=== PATIENT | female | born 1990 | race Caucasian/White ===

== ENCOUNTER 2017-04-30 00:35 | Inpatient (IN) | payer MEDICAID ==
[2017-04-30] MEDS ORDERED: Sodium Chloride 0.9% 10 ML Syringe FLUSH PRN (00:42)
[2017-04-30] MEDS ORDERED: Nalbuphine 20 MG/1 ML Amp IVPUSH PRN (00:42)
[2017-04-30] MEDS ORDERED: Nalbuphine 20 MG/1 ML Amp ONE (00:44)
[2017-04-30] MEDS ORDERED: Oxytocin/Lactated Ringers 10 UNIT/1,000 ML BAG IV ONE (00:52)
[2017-04-30] MEDS ORDERED: Lidocaine 1% 50 ML MDV ONE (00:53)
--- NOTE | 2017-04-30 01:27 | PCM.LDHP ---
L&D History of Present Illness - General Date of Service: 04/30/17 Admit Problem/Dx: Patient Status Order with Admit Dx/Problem 04/30/17 00:42 Patient Status [ADT] Routine Admission Diagnosis/Problem Admission Diagnosis/Problem Source of Information: Patient History Limitations: Reports: No Limitations - History of Present Illness Introduction:: 26-year-old 102 [place]HT[place] 05/16/17 at 37 weeks and 5 days presented to labor and delivery with history of ruptured membranes spontaneously at approximately 11:30 PM on 04/29/17 (2330) GBS negative was admitted to labor and delivery at 6 -7 cm dilated progressed rapidly to complete. On transvaginal delivery without laceration see delivery note. AB+, antibody screen negative rubella immune RPR nonreactive, hepatitis B surface antigen negative HIV negative Chlamydia negative GC negative hemoglobin 11.3 on 02/01/17 platelets 187,001 hour OB glucose screen 73 antibody screen negative RPR nonreactive GBS not detected Location, : Reports: Abdomen, Lower back Pain Score: 10 Improves with: Reports: None Worsens with: Reports: None Associated Symptoms: Reports: N - Related Data Allergies/Adverse Reactions: Allergies Allergy/AdvReac Type Severity Reaction Status Date / Time No Known Allergies Allergy Verified 04/30/17 00:42 Past Medical History : 3 Para: 1 (1102) LMP (Approximate): H&P Review of Systems - Review of Systems: Review Of Systems: See Below General: Reports: No Symptoms HEENT: Reports: No Symptoms Pulmonary: Reports: No Symptoms Cardiovascular: Reports: No Symptoms Gastrointestinal: Reports: No Symptoms Genitourinary: Reports: No Symptoms Musculoskeletal: Reports: No Symptoms Skin: Reports: No Symptoms Psychiatric: Reports: No Symptoms Neurological: Reports: No Symptoms Hematologic/Lymphatic: Reports: No Symptoms Immunologic: Reports: No Symptoms L&D Exam - Exam Exam: See Below - Vital Signs Weight: 203 lb - OB Specific Fundal Height In cm: 37 Contraction Duration (sec): 60 Contraction Frequency (min): 2 Contraction Intensity: Strong Movement: Active Heart Tones: Present Heart Tones per Min: 135 Heart Rate (FHR) Variability: Moderate (6-25 bmp) Presentation: Right Occiput Anterior (HELEN) - Carey Score Carey Score Cervix Position: Posterior Carey Score Consistency: Soft Carey Score Effacement: >80% Carey Score Dilation: > 5 cm Carey Score Infant's Station: +1, +2 Carey Score Total: 11 - Exam General: Alert, Oriented HEENT: Conjunctiva Clear, Mucosa Moist & [place], Posterior Pharynx Clear, PERRLA Neck: Supple, Trachea Midline Lungs: Clear to Auscultation, Normal Respiratory Effort Cardiovascular: Regular Rate, Regular Rhythm GI/Abdominal Exam: Normal Bowel Sounds, Soft, Non-Tender, No Organomegaly, No Distention, No Abnormal Bruit Genitourinary: Normal external exam, Normal bimanual exam, Normal speculum exam Back Exam: Normal Inspection, Full Range of Motion Extremities: Normal Inspection, Normal Range of Motion, Non-Tender, No Pedal Edema, Normal Capillary Refill Skin: Warm, Dry, Intact Psychiatric: Alert, Normal Affect, Normal Mood - Problem List (1) 37 weeks gestation of SNOMED Code(s): 28327119 ICD Code: Z3A.37 - 37 WEEKS GESTATION OF Status: Acute Current Visit: Yes (2) Encounter for full-term uncomplicated delivery SNOMED Code(s): 46820271 ICD Code: O80 - ENCOUNTER FOR FULL-TERM UNCOMPLICATED DELIVERY Status: Acute Current Visit: Yes (3) Precipitous delivery, delivered (current hospitalization) SNOMED Code(s): 876830764 ICD Code: O62.3 - PRECIPITATE LABOR Status: Acute Current Visit: Yes Problem List Initiated/Reviewed/Updated: No Orders Last 24hrs: Active Orders 24 hr Category Date Time Status Patient Status [ADT] Routine ADT 04/30/17 00:42 Active Activity as Tolerated [RC] PFP Care 04/30/17 00:42 Active Communication Order [RC] ASDIRECTED Care 04/30/17 00:42 Active Heart Tones [RC] ASDIRECTED Care 04/30/17 00:43 Active Notify Provider [RC] PFP Care 04/30/17 00:42 Active Notify Provider [RC] PRN Care 04/30/17 00:42 Active Peripheral IV Care [RC] . DIRECTED Care 04/30/17 00:43 Active Pump Management, Intrathecal [RC] ASDIRECTED Care 04/30/17 00:44 Active Vital Signs [RC] PER UNIT ROUTINE Care 04/30/17 00:42 Active Nalbuphine [Nubain] Med 04/30/17 00:42 Active 10 mg IVPUSH Q2H PRN Oxytocin [Pitocin] 20 unit Med 04/30/17 01:00 Active Lactated Ringers [Ringers, Lactated] 1,000 ml IV TITRATE Sodium Chloride 0.9% [Saline Flush] Med 04/30/17 00:42 Active 10 ml FLUSH ASDIRECTED PRN Electronic Heart Tones Ext w TOCO [WOMSER] Oth 04/30/17 00:42 Ordered Routine Electronic Heart Tones Internal [WOMSER] Per Unit Oth 04/30/17 00:42 Ordered Routine Peripheral IV Insertion Adult [OM.PC] Routine Oth 04/30/17 00:42 Ordered Resuscitation Status Routine Resus Stat 04/30/17 00:42 Ordered Medication Orders Oxytocin 20 unit/ Lactated (Ringer's) 1,002 mls @ 500 mls/hr IV TITRATE ALVAREZ Nalbuphine HCl (Nubain) 10 mg IVPUSH Q2H PRN PRN Reason: Pain (moderate 4-6) Sodium Chloride (Saline Flush) 10 ml FLUSH ASDIRECTED PRN PRN Reason: Keep Vein Open Assessment/Plan Comment:: Patient presented to labor and delivery precipitous delivery history and physical completed after delivery. I was called at 00 46 and arrived at 0053
--- NOTE | 2017-04-30 01:33 | PCM.DEL ---
L & D Note - General Info Date of Service: 04/30/17 Mother's Due Date: 05/16/17 - Delivery Note Labor: Spontaneous Delivery Outcome: Livebirth (Female liveborn Monday04/30/17 0100 hrs. HELEN Apgars 8/9 weight pending) Delivery Mode: Spontaneous Presentation: Right Occiput Anterior (HELEN) Nuchal Cord: None Prep: Povidone-Iodine (Betadine Anesthesia Type: None Episiotomy Type: None Laceration: None Placenta: Intact, Spontaneous ([place] 04/30/17Monday 0106 hrs. examined intact discarded) Cord: 3 Vessels Estimated Blood Loss: 150 Resuscitation Needed: No : Suctioned, Bulb Syringe, Stimulated, Warmed, [place] Used, Warmer Used Provider: Roney Kennedy Score 1 min: 8 Score 5 min: 9 - Patient Data Weight - Most Recent: 203 lb Med Orders - Current: Current Medications Oxytocin 20 unit/ Lactated (Ringer's) 1,002 mls @ 500 mls/hr IV TITRATE ALVAREZ Nalbuphine HCl (Nubain) 10 mg IVPUSH Q2H PRN PRN Reason: Pain (moderate 4-6) Sodium Chloride (Saline Flush) 10 ml FLUSH ASDIRECTED PRN PRN Reason: Keep Vein Open Discontinued Medications Oxytocin/Lactated Ringer's (Pitocin In Lr 10 Units/1,000 Ml) Confirm Administered Dose 10 unit in 1,000 mls @ as directed IV .STK-MED ONE Stop: 04/30/17 00:53 Lidocaine HCl (Xylocaine 1%) Confirm Administered Dose 50 ml .ROUTE .STK-MED ONE Stop: 04/30/17 00:54 Nalbuphine HCl (Nubain) Confirm Administered Dose 20 mg .ROUTE .STK-MED ONE Stop: 04/30/17 00:45 - Problem List & Annotations (1) 37 weeks gestation of SNOMED Code(s): 45050563 Code(s): Z3A.37 - 37 WEEKS GESTATION OF Status: Acute Current Visit: Yes (2) Encounter for full-term uncomplicated delivery SNOMED Code(s): 57320863 Code(s): O80 - ENCOUNTER FOR FULL-TERM UNCOMPLICATED DELIVERY Status: Acute Current Visit: Yes (3) Precipitous delivery, delivered (current hospitalization) SNOMED Code(s): 735595479 Code(s): O62.3 - PRECIPITATE LABOR Status: Acute Current Visit: Yes - Problem List Review Problem List Initiated/Reviewed/Updated: No - My Orders Last 24 Hours: My Active Orders 04/30/17 00:42 Patient Status [ADT] Routine Activity as Tolerated [RC] PFP Communication Order [RC] ASDIRECTED Notify Provider [RC] PFP Notify Provider [RC] PRN Vital Signs [RC] PER UNIT ROUTINE Nalbuphine [Nubain] 10 mg IVPUSH Q2H PRN Sodium Chloride 0.9% [Saline Flush] 10 ml FLUSH ASDIRECTED PRN Electronic Heart Tones Ext w TOCO [WOMSER] Routine Electronic Heart Tones Internal [WOMSER] Per Unit Routine Peripheral IV Insertion Adult [OM.PC] Routine Resuscitation Status Routine 04/30/17 00:43 Heart Tones [RC] ASDIRECTED Peripheral IV Care [RC] . DIRECTED 04/30/17 00:44 Pump Management, Intrathecal [RC] ASDIRECTED 04/30/17 01:00 Oxytocin [Pitocin] 20 unit Lactated Ringers [Ringers, Lactated] 1,000 ml IV TITRATE 04/30/17 01:28 Patient Status Manage Transfer [TRANSFER] Routine - Plan Plan:: Patient presented to labor and delivery precipitous delivery history and physical completed after delivery. I was called at 00 46 and arrived at 0053
[2017-04-30] MEDS ORDERED: Docusate Sodium 100 MG Cap PO PRN (01:39)
[2017-04-30] MEDS ORDERED: Benzocaine/Menthol 20%-0.5% Spray 56 GM Canister TOP PRN (01:39)
[2017-04-30] MEDS ORDERED: Acetaminophen 325 MG Tab PO PRN (01:39)
[2017-04-30] MEDS ORDERED: Witch Hazel Medicated Pads 100/Jar TOP PRN (01:39)
[2017-04-30] MEDS ORDERED: Lanolin 100% Cream 7 GM Tube TOP PRN (01:39)
[2017-04-30] MEDS: Ibuprofen 600 MG Tab PO PRN ×3 (03:30→20:55)
[2017-04-30] MEDS ORDERED: Ondansetron 4 MG Tab.DIS PO PRN (07:56)
--- NOTE | 2017-04-30 09:48 | PCM.PNPP ---
- General Info Date of Service: 04/30/17 Functional Status: Reports: Pain Controlled - Review of Systems General: Reports: Other (Planes of dizziness and shakiness) HEENT: Reports: No Symptoms Pulmonary: Reports: No Symptoms Cardiovascular: Reports: No Symptoms Gastrointestinal: Reports: No Symptoms Genitourinary: Reports: No Symptoms Musculoskeletal: Reports: No Symptoms Skin: Reports: No Symptoms Neurological: Reports: No Symptoms Psychiatric: Reports: No Symptoms - General Info Date of Service: 04/30/17 - Patient Data Weight - Most Recent: 203 lb Lab Results - Last 24 Hours: Laboratory Results - last 24 hr 04/30/17 04/30/17 Range/Units 06:51 08:29 WBC 18.78 H (3.98-10.04) K/mm3 RBC 3.39 L (3.98-5.22) M/mm3 Hgb 10.8 L (11.2-15.7) gm/L Hct 31.6 L (34.1-44.9) % MCV 93.2 (79.4-94.8) fl MCH 31.9 (25.6-32.2) pg MCHC 34.2 (32.2-35.5) g/dl RDW Std Deviation 44.9 (36.4-46.3) fL Plt Count 149 L (182-369) K/mm3 MPV 11.1 (9.4-12.3) fl Neut % (Auto) 85.0 H (34.0-71.1) % Lymph % (Auto) 9.7 L (19.3-51.7) % [place] % (Auto) 4.8 (4.7-12.5) % Eos % (Auto) 0 L (0.7-5.8) Baso % (Auto) 0.1 (0.1-1.2) % Neut # (Auto) 15.97 H (1.56-6.13) K/mm3 Lymph # (Auto) 1.82 (1.18-3.74) K/mm3 [place] # (Auto) 0.90 H (0.24-0.36) K/mm3 Eos # (Auto) 0.00 L (0.04-0.36) K/mm3 Baso # (Auto) 0.02 (0.01-0.08) K/mm3 Manual Slide Review Abnormal smear Sodium 137 (136-145) mEq/L Potassium 4.4 (3.5-5.1) mEq/L Chloride 104 (98-107) mEq/L Carbon Dioxide 23 (21-32) mEq/L Anion Gap 14.4 (5-15) BUN 19 H (7-18) mg/dL Creatinine 0.8 (0.55-1.02) mg/dL Est Cr Clr Drug Dosing 100.63 mL/min Estimated GFR (MDRD) > 60 (>60) mL/min BUN/Creatinine Ratio 23.8 H (14-18) Glucose 102 (74-106) mg/dL Uric Acid 8.4 H (2.6-6.0) mg/dL Calcium 8.5 (8.5-10.1) mg/dL Total Bilirubin 0.4 (0.2-1.0) mg/dL AST 23 (15-37) U/L ALT 16 (14-59) U/L Alkaline Phosphatase 105 (46-116) U/L Total Protein 5.7 L (6.4-8.2) g/dl Albumin 2.4 L (3.4-5.0) g/dl Globulin 3.3 gm/dL Albumin/Globulin Ratio 0.7 L (1-2) Med Orders - Current: Current Medications Acetaminophen (Tylenol) 650 mg PO Q4H PRN PRN Reason: mild pain or fever Last Admin: 04/30/17 06:51 Dose: 325 mg Benzocaine/Menthol (Dermoplast Pain Relief [place]) 0 gm TOP ASDIRECTED PRN PRN Reason: Perineal Comfort Measure Last Admin: 04/30/17 06:47 Dose: 1 applic Docusate Sodium (Colace) 100 mg PO BID PRN PRN Reason: Constipation Emollient Ointment (Lansinoh Hpa) 0 gm TOP ASDIRECTED PRN PRN Reason: Sore Nipples Ibuprofen (Motrin) 600 mg PO Q4H PRN PRN Reason: Mild pain or fever Last Admin: 04/30/17 03:30 Dose: 600 mg Ondansetron HCl (Zofran Odt) 4 mg PO Q4H PRN PRN Reason: Nausea/Vomiting Last Admin: 04/30/17 08:46 Dose: 4 mg Witch Alisha (Tucks) 1 pad TOP ASDIRECTED PRN PRN Reason: Hemorrhoid pain Last Admin: 04/30/17 06:48 Dose: 1 applic Discontinued Medications Oxytocin 20 unit/ Lactated (Ringer's) 1,002 mls @ 500 mls/hr IV TITRATE ALVAREZ Oxytocin/Lactated Ringer's (Pitocin In Lr 10 Units/1,000 Ml) Confirm Administered Dose 10 unit in 1,000 mls @ as directed IV .STK-MED ONE Stop: 04/30/17 00:53 Last Admin: 04/30/17 06:56 Dose: 10 unit Lidocaine HCl (Xylocaine 1%) Confirm Administered Dose 50 ml .ROUTE .STK-MED ONE Stop: 04/30/17 00:54 Last Admin: 04/30/17 06:52 Dose: Not Given Nalbuphine HCl (Nubain) Confirm Administered Dose 20 mg .ROUTE .STK-MED ONE Stop: 04/30/17 00:45 Last Admin: 04/30/17 06:50 Dose: Not Given Nalbuphine HCl (Nubain) 10 mg IVPUSH Q2H PRN PRN Reason: Pain (moderate 4-6) Last Admin: 04/30/17 00:40 Dose: 10 mg Sodium Chloride (Saline Flush) 10 ml FLUSH ASDIRECTED PRN PRN Reason: Keep Vein Open - Infant Interaction Disposition, : [place] in Room with Family Infant Interaction: Holding Infant Support Person: Significant Other - Recovery Exam Fundal Tone: Firm Fundal Level: At Umbilicus Fundal Placement: Midline Lochia Amount: Scant Lochia Color: Rubra/Red Perineum Description: Intact, Minimal Bruising/Swelling Episiotomy/Laceration: None Bladder Status: Nonpalpable - Exam General: Alert, Oriented Neck: Supple Lungs: Clear to Auscultation, Normal Respiratory Effort Cardiovascular: Regular Rate, Regular Rhythm GI/Abdominal Exam: Normal Bowel Sounds, Soft, Non-Tender, No Distention, No Abnormal Bruit Extremities: Normal Inspection, Normal Range of Motion, Non-Tender, No Pedal Edema, Normal Capillary Refill Skin: Warm, Dry, Intact Wound/Incisions: Healing Well Neurological: No New Focal Deficit, Other (Reflexes 3+ no clonus (patellar)) Psy/Mental Status: Alert, Normal Affect, Normal Mood - Problem List & Annotations (1) 37 weeks gestation of SNOMED Code(s): 75457784 Code(s): Z3A.37 - 37 WEEKS GESTATION OF Status: Acute Current Visit: Yes (2) Encounter for full-term uncomplicated delivery SNOMED Code(s): 23584979 Code(s): O80 - ENCOUNTER FOR FULL-TERM UNCOMPLICATED DELIVERY Status: Acute Current Visit: Yes (3) Precipitous delivery, delivered (current hospitalization) SNOMED Code(s): 508230519 Code(s): O62.3 - PRECIPITATE LABOR Status: Acute Current Visit: Yes - Problem List Review Problem List Initiated/Reviewed/Updated: No - My Orders Last 24 Hours: My Active Orders 04/30/17 00:42 Activity as Tolerated [RC] PFP Communication Order [RC] ASDIRECTED Notify Provider [RC] PFP Notify Provider [RC] PRN Vital Signs [RC] PER UNIT ROUTINE Resuscitation Status Routine 04/30/17 00:43 Heart Tones [RC] ASDIRECTED Peripheral IV Care [RC] . DIRECTED 04/30/17 00:44 Pump Management, Intrathecal [RC] ASDIRECTED 04/30/17 01:39 Activity as Tolerated [RC] PER UNIT ROUTINE Vital Signs [RC] ASDIRECTED Acetaminophen [Tylenol] 650 mg PO Q4H PRN Benzocaine/Menthol [Dermoplast Pain Relief [place]] See Dose Instructions TOP ASDIRECTED PRN Docusate Sodium [Colace] 100 mg PO BID PRN Ibuprofen [Motrin] 600 mg PO Q4H PRN Lanolin [Lansinoh HPA] See Dose Instructions TOP ASDIRECTED PRN Witch Alisha [Tucks] 1 pad TOP ASDIRECTED PRN Assess Lochia [WOMSER] Per Unit Routine Assess Uterine Involution [WOMSER] Per Unit Routine Breast Pump [WOMSER] Per Unit Routine Heat Therapy [OM.PC] PRN Medication Administration Instruction [OM.PC] Routine Perineal Care [OM.PC] Per Unit Routine Peripheral IV Discontinue [OM.PC] Routine Sitz Bath [OM.PC] Per Unit Routine 04/30/17 07:56 Ondansetron [Zofran ODT] 4 mg PO Q4H PRN 04/30/17 Breakfast Regular Diet [DIET] 05/01/17 01:39 Heat Therapy [OM.PC] PRN - Assessment Assessment:: Due to hyperreflexia will place on Vistaril 25 mg by mouth every 6 hours - Plan Plan:: Patient presented to labor and delivery precipitous delivery history and physical completed after delivery. I was called at 00 46 and arrived at 0053
[2017-04-30] MEDS: hydrOXYzine HCl 25 MG Tab PO SCH ×2 (14:38→19:21)
[2017-05-01] MEDS: hydrOXYzine HCl 25 MG Tab PO SCH ×2 (02:42→04:33)
[2017-05-01] MEDS: Ibuprofen 600 MG Tab PO PRN (04:10)
--- NOTE | 2017-05-01 06:18 | PCM.DCSUM1 ---
Discharge Summary - Hospital Course Free Text/Narrative:: [facility] LIVE L/D Delivery Note Patient Name: URBAN WALKER Date of : 89 Patient Status: Inpatient Attending Provider: Roney Kennedy Date: 04/30/17 01:32 Initialization Date: 04/30/17 01:32 L & D Note - General Info Date of Service: 04/30/17 Mother's Due Date: 05/16/17 - Delivery Note Labor: Spontaneous Delivery Outcome: Livebirth (Female liveborn Monday04/30/17 0100 hrs. HELEN Apgars 8/9 weight pending) Delivery Mode: Spontaneous Presentation: Right Occiput Anterior (HELEN) Nuchal Cord: None Prep: Povidone-Iodine (Betadine Anesthesia Type: None Episiotomy Type: None Laceration: None Placenta: Intact, Spontaneous (04/30/17Monday 0106 hrs. examined intact discarded) Cord: 3 Vessels Estimated Blood Loss: 150 Resuscitation Needed: No : Suctioned, Bulb Syringe, Stimulated, Warmed, [place] Used, Warmer Used Provider: Roney Kennedy Score 1 min: 8 Score 5 min: 9 - Patient Data Weight - Most Recent: 203 lb Med Orders - Current: Current Medications Oxytocin 20 unit/ Lactated (Ringer's) 1,002 mls @ 500 mls/hr IV TITRATE ALVAREZ Nalbuphine HCl (Nubain) 10 mg IVPUSH Q2H PRN PRN Reason: Pain (moderate 4-6) Sodium Chloride (Saline Flush) 10 ml FLUSH ASDIRECTED PRN PRN Reason: Keep Vein Open Discontinued Medications Oxytocin/Lactated Ringer's (Pitocin In Lr 10 Units/1,000 Ml) Confirm Administered Dose 10 unit in 1,000 mls @ as directed IV .STK-MED ONE Stop: 04/30/17 00:53 Lidocaine HCl (Xylocaine 1%) Confirm Administered Dose 50 ml .ROUTE .STK-MED ONE Stop: 04/30/17 00:54 Nalbuphine HCl (Nubain) Confirm Administered Dose 20 mg .ROUTE .STK-MED ONE Stop: 04/30/17 00:45 - Problem List & Annotations (1) 37 weeks gestation of SNOMED Code(s): 20622461 Code(s): Z3A.37 - 37 WEEKS GESTATION OF Status: Acute Current Visit: Yes (2) Encounter for full-term uncomplicated delivery SNOMED Code(s): 54178319 Code(s): O80 - ENCOUNTER FOR FULL-TERM UNCOMPLICATED DELIVERY Status: Acute Current Visit: Yes (3) Precipitous delivery, delivered (current hospitalization) SNOMED Code(s): 135311317 Code(s): O62.3 - PRECIPITATE LABOR Status: Acute Current Visit: Yes - Problem List Review Problem List Initiated/Reviewed/Updated: No - My Orders Last 24 Hours: My Active Orders 04/30/17 00:42 Patient Status [ADT] Routine Activity as Tolerated [RC] PFP Communication Order [RC] ASDIRECTED Notify Provider [RC] PFP Notify Provider [RC] PRN Vital Signs [RC] PER UNIT ROUTINE Nalbuphine [Nubain] 10 mg IVPUSH Q2H PRN Sodium Chloride 0.9% [Saline Flush] 10 ml FLUSH ASDIRECTED PRN Electronic Heart Tones Ext w TOCO [WOMSER] Routine Electronic Heart Tones Internal [WOMSER] Per Unit Routine Peripheral IV Insertion Adult [OM.PC] Routine Resuscitation Status Routine 04/30/17 00:43 Heart Tones [RC] ASDIRECTED Peripheral IV Care [RC] . DIRECTED 04/30/17 00:44 Pump Management, Intrathecal [RC] ASDIRECTED 04/30/17 01:00 Oxytocin [Pitocin] 20 unit Lactated Ringers [Ringers, Lactated] 1,000 ml IV TITRATE 04/30/17 01:28 Patient Status Manage Transfer [TRANSFER] Routine - Plan Plan:: Patient presented to labor and delivery precipitous delivery history and physical completed after delivery. I was called at 00 46 and arrived at 0053 HPI Initial Comments: [facility] LIVE L/D Delivery Note Patient Name: URBAN WALKER Date of : 89 Patient Status: Inpatient Attending Provider: Roney Kennedy Date: 04/30/17 01:32 Initialization Date: 04/30/17 01:32 L & D Note - General Info Date of Service: 04/30/17 Mother's Due Date: 05/16/17 - Delivery Note Labor: Spontaneous Delivery Outcome: Livebirth (Female liveborn Monday04/30/17 0100 hrs. HELEN Apgars 8/9 weight pending) Delivery Mode: Spontaneous Presentation: Right Occiput Anterior (HELEN) Nuchal Cord: None Prep: Povidone-Iodine (Betadine Anesthesia Type: None Episiotomy Type: None Laceration: None Placenta: Intact, Spontaneous ([place] 04/30/17Monday 0106 hrs. examined intact discarded) Cord: 3 Vessels Estimated Blood Loss: 150 Resuscitation Needed: No [place]: Suctioned, Bulb Syringe, Stimulated, Warmed, [place] Used, Warmer Used Provider: Roney Kennedy Score 1 min: 8 Score 5 min: 9 - Patient Data Weight - Most Recent: 203 lb Med Orders - Current: Current Medications Oxytocin 20 unit/ Lactated (Ringer's) 1,002 mls @ 500 mls/hr IV TITRATE ALVAREZ Nalbuphine HCl (Nubain) 10 mg IVPUSH Q2H PRN PRN Reason: Pain (moderate 4-6) Sodium Chloride (Saline Flush) 10 ml FLUSH ASDIRECTED PRN PRN Reason: Keep Vein Open Discontinued Medications Oxytocin/Lactated Ringer's (Pitocin In Lr 10 Units/1,000 Ml) Confirm Administered Dose 10 unit in 1,000 mls @ as directed IV .STK-MED ONE Stop: 04/30/17 00:53 Lidocaine HCl (Xylocaine 1%) Confirm Administered Dose 50 ml .ROUTE .STK-MED ONE Stop: 04/30/17 00:54 Nalbuphine HCl (Nubain) Confirm Administered Dose 20 mg .ROUTE .STK-MED ONE Stop: 04/30/17 00:45 - Problem List & Annotations (1) 37 weeks gestation of SNOMED Code(s): 26831218 Code(s): Z3A.37 - 37 WEEKS GESTATION OF Status: Acute Current Visit: Yes (2) Encounter for full-term uncomplicated delivery SNOMED Code(s): 27191705 Code(s): O80 - ENCOUNTER FOR FULL-TERM UNCOMPLICATED DELIVERY Status: Acute Current Visit: Yes (3) Precipitous delivery, delivered (current hospitalization) SNOMED Code(s): 712720164 Code(s): O62.3 - PRECIPITATE LABOR Status: Acute Current Visit: Yes - Problem List Review Problem List Initiated/Reviewed/Updated: No - My Orders Last 24 Hours: My Active Orders 04/30/17 00:42 Patient Status [ADT] Routine Activity as Tolerated [RC] PFP Communication Order [RC] ASDIRECTED Notify Provider [RC] PFP Notify Provider [RC] PRN Vital Signs [RC] PER UNIT ROUTINE Nalbuphine [Nubain] 10 mg IVPUSH Q2H PRN Sodium Chloride 0.9% [Saline Flush] 10 ml FLUSH ASDIRECTED PRN Electronic Heart Tones Ext w TOCO [WOMSER] Routine Electronic Heart Tones Internal [WOMSER] Per Unit Routine Peripheral IV Insertion Adult [OM.PC] Routine Resuscitation Status Routine 04/30/17 00:43 Heart Tones [RC] ASDIRECTED Peripheral IV Care [RC] . DIRECTED 04/30/17 00:44 Pump Management, Intrathecal [RC] ASDIRECTED 04/30/17 01:00 Oxytocin [Pitocin] 20 unit Lactated Ringers [Ringers, Lactated] 1,000 ml IV TITRATE 04/30/17 01:28 Patient Status Manage Transfer [TRANSFER] Routine - Plan Plan:: Patient presented to labor and delivery precipitous delivery history and physical completed after delivery. I was called at 00 46 and arrived at 0053 Brief History: [facility] LIVE . L/D Delivery Note. Patient Name: URBAN WALKER [facility] Record Number: [id number]. Date of : [birth year]Patient Status: Inpatient. Attending Provider: Roney Kennedy Number: [id number]. Date: 04/30/17 01:32Initialization Date: 04/30/17 01:32. L & D Note. - General Info. Date of Service: 04/30/17. Mother's Due Date: 05/16/17. - Delivery Note. Labor: Spontaneous. Delivery Outcome: Livebirth ( Female liveborn Monday04/30/17 0100 hrs. HELEN Apgars 8/9 weight pending). Infant Delivery Mode: Spontaneous. Presentation: Right Occiput Anterior ( HELEN). Nuchal Cord: None. Prep: Povidone-Iodine (Betadine. Anesthesia Type: None. Episiotomy Type: None. Laceration: None. Placenta: Intact, Spontaneous ([place] 04/30/17Monday 0106 hrs. examined intact discarded). Cord: 3 Vessels. Estimated Blood Loss: 150. Resuscitation Needed: No. : Suctioned, Bulb Syringe, Stimulated, Warmed, [place] Used, Warmer Used. Provider : Roney Kennedy. Score 1 min: 8. Score 5 min: 9. - Patient Data. Weight - Most Recent: 203 lb. Med Orders - Current: Current Medications. Oxytocin 20 unit/ Lactated (Ringer's) 1,002 mls @ 500 mls/hr IV TITRATE ALVAREZ. Nalbuphine HCl (Nubain) 10 mg IVPUSH Q2H PRN. PRN Reason: Pain ( moderate 4-6). Sodium Chloride (Saline Flush) 10 ml FLUSH ASDIRECTED PRN. PRN Reason: Keep Vein Open. Discontinued Medications. Oxytocin/Lactated Ringer 's (Pitocin In Lr 10 Units/1,000 Ml) Confirm Administered Dose 10 unit in 1,000 mls @ as directed IV .STK-MED ONE. Stop: 04/30/17 00:53. Lidocaine HCl ( Xylocaine 1%) Confirm Administered Dose 50 ml .ROUTE .STK-MED ONE. Stop: 00:54. Nalbuphine HCl (Nubain) Confirm Administered Dose 20 mg .ROUTE .STK- MED ONE. Stop: 04/30/17 00:45. - Problem List & Annotations. (1) 37 weeks gestation of . SNOMED Code(s): 96670732. Code(s): Z3A.37 - 37 WEEKS GESTATION OF Status: Acute Current Visit: Yes. (2) Encounter for full-term uncomplicated delivery. SNOMED Code(s): 95086813. Code(s): O80 - ENCOUNTER FOR FULL-TERM UNCOMPLICATED DELIVERY Status: Acute Current Visit: Yes. (3) Precipitous delivery, delivered (current hospitalization). SNOMED Code(s): 447740963. Code(s): O62.3 - PRECIPITATE LABOR Status: Acute Current Visit: Yes. - Problem List Review. Problem List Initiated/Reviewed/ Updated: No. - My Orders. Last 24 Hours: My Active Orders. 04/30/17 00:42. Patient Status [ADT] Routine. Activity as Tolerated [RC] PFP. Communication Order [RC] ASDIRECTED. Notify Provider [RC] PFP. Notify Provider [RC] PRN. Vital Signs [RC] PER UNIT ROUTINE. Nalbuphine [Nubain] 10 mg IVPUSH Q2H PRN. Sodium Chloride 0.9% [Saline Flush] 10 ml FLUSH ASDIRECTED PRN. Electronic Heart Tones Ext w TOCO [WOMSER] Routine. Electronic Heart Tones Internal [WOMSER] Per Unit Routine. Peripheral IV Insertion Adult [OM.PC] Routine. Resuscitation Status Routine. 04/30/17 00:43. Heart Tones [RC ] ASDIRECTED. Peripheral IV Care [RC] . DIRECTED. 04/30/17 00:44. Pump Management, Intrathecal [RC] ASDIRECTED. 04/30/17 01:00. Oxytocin [Pitocin] 20 unit Lactated Ringers [Ringers, Lactated] 1,000 ml IV TITRATE. 04/30/17 01 :28. Patient Status Manage Transfer [TRANSFER] Routine. - Plan. Plan:: Patient presented to labor and delivery precipitous delivery history and physical completed after delivery. I was called at 00 46 and arrived at 0053 - Discharge Data Discharge Date: 05/01/17 Discharge Disposition: Home, Self-Care 01 Condition: Good - Discharge Diagnosis/Problem(s) (1) 37 weeks gestation of SNOMED Code(s): 37192352 ICD Code: Z3A.37 - 37 WEEKS GESTATION OF Status: Acute Current Visit: Yes (2) Encounter for full-term uncomplicated delivery SNOMED Code(s): 47463059 ICD Code: O80 - ENCOUNTER FOR FULL-TERM UNCOMPLICATED DELIVERY Status: Acute Current Visit: Yes (3) Precipitous delivery, delivered (current hospitalization) SNOMED Code(s): 905545735 ICD Code: O62.3 - PRECIPITATE LABOR Status: Acute Current Visit: Yes - Patient Summary/Data Complications: None Consults: None Hospital Course: Uneventful - Patient Instructions Diet: Regular Diet as Tolerated Driving: Do Not Drive (48 hours) Showering/Bathing: May Shower Notify Provider of: Fever, Increased Pain, Swelling and Redness, Drainage, Nausea and/or Vomiting - Discharge Plan Home Medications: Home Meds Acetaminophen [Tylenol] 650 mg PO Q6H PRN tablet 05/01/17 [Rx] Benzocaine/Menthol [Dermoplast Pain Relief Fulda] 1 spray TOP ASDIRECTED PRN canister 05/01/17 [Rx] Docusate Sodium [Colace] 100 mg PO BID PRN cap 05/01/17 [Rx] Ibuprofen [IJD: Ibuprofen] 600 mg PO Q6H PRN tablet 05/01/17 [Rx] Lanolin [Lansinoh HPA] 1 applic TOP ASDIRECTED PRN tube 05/01/17 [Rx] Witch Alisha [Tucks] 1 pad TOP ASDIRECTED PRN pad 05/01/17 [Rx] Referrals: Stefanie Norton MD [Physician] - (6 weeks) - Discharge Summary/Plan Comment DC Time >30 min.: No - Patient Data Vitals - Most Recent: Last Vital Signs Temp 97.9 F 05/01/17 03:57 Pulse 96 05/01/17 03:57 Resp 16 05/01/17 03:57 BP 139/81 05/01/17 03:57 Pulse Ox 100 05/01/17 03:57 Weight - Most Recent: 203 lb I&O - Last 24 hours: Intake & Output 04/30/17 04/30/17 05/01/17 14:59 22:59 06:59 Intake Total 120 360 Balance 120 360 Lab Results - Last 24 hrs: Laboratory Results - last 24 hr 04/30/17 04/30/17 Range/Units 06:51 08:29 WBC 18.78 H (3.98-10.04) K/mm3 RBC 3.39 L (3.98-5.22) M/mm3 Hgb 10.8 L (11.2-15.7) gm/L Hct 31.6 L (34.1-44.9) % MCV 93.2 (79.4-94.8) fl MCH 31.9 (25.6-32.2) pg MCHC 34.2 (32.2-35.5) g/dl RDW Std Deviation 44.9 (36.4-46.3) fL Plt Count 149 L (182-369) K/mm3 MPV 11.1 (9.4-12.3) fl Neut % (Auto) 85.0 H (34.0-71.1) % Lymph % (Auto) 9.7 L (19.3-51.7) % [place] % (Auto) 4.8 (4.7-12.5) % Eos % (Auto) 0 L (0.7-5.8) Baso % (Auto) 0.1 (0.1-1.2) % Neut # (Auto) 15.97 H (1.56-6.13) K/mm3 Lymph # (Auto) 1.82 (1.18-3.74) K/mm3 [place] # (Auto) 0.90 H (0.24-0.36) K/mm3 Eos # (Auto) 0.00 L (0.04-0.36) K/mm3 Baso # (Auto) 0.02 (0.01-0.08) K/mm3 Manual Slide Review Abnormal smear Sodium 137 (136-145) mEq/L Potassium 4.4 (3.5-5.1) mEq/L Chloride 104 (98-107) mEq/L Carbon Dioxide 23 (21-32) mEq/L Anion Gap 14.4 (5-15) BUN 19 H (7-18) mg/dL Creatinine 0.8 (0.55-1.02) mg/dL Est Cr Clr Drug Dosing 100.63 mL/min Estimated GFR (MDRD) > 60 (>60) mL/min BUN/Creatinine Ratio 23.8 H (14-18) Glucose 102 (74-106) mg/dL Uric Acid 8.4 H (2.6-6.0) mg/dL Calcium 8.5 (8.5-10.1) mg/dL Total Bilirubin 0.4 (0.2-1.0) mg/dL AST 23 (15-37) U/L ALT 16 (14-59) U/L Alkaline Phosphatase 105 (46-116) U/L Total Protein 5.7 L (6.4-8.2) g/dl Albumin 2.4 L (3.4-5.0) g/dl Globulin 3.3 gm/dL Albumin/Globulin Ratio 0.7 L (1-2) Med Orders - Current: Current Medications Acetaminophen (Tylenol) 650 mg PO Q4H PRN PRN Reason: mild pain or fever Last Admin: 04/30/17 06:51 Dose: 325 mg Benzocaine/Menthol (Dermoplast Pain Relief [place]) 0 gm TOP ASDIRECTED PRN PRN Reason: Perineal Comfort Measure Last Admin: 04/30/17 06:47 Dose: 1 applic Docusate Sodium (Colace) 100 mg PO BID PRN PRN Reason: Constipation Emollient Ointment (Lansinoh Hpa) 0 gm TOP ASDIRECTED PRN PRN Reason: Sore Nipples Hydroxyzine HCl (Atarax) 25 mg PO Q6H [facility] Stop: 05/01/17 10:01 Last Admin: 05/01/17 04:33 Dose: Not Given Ibuprofen (Motrin) 600 mg PO Q4H PRN PRN Reason: Mild pain or fever Last Admin: 05/01/17 04:10 Dose: 600 mg Ondansetron HCl (Zofran Odt) 4 mg PO Q4H PRN PRN Reason: Nausea/Vomiting Last Admin: 04/30/17 08:46 Dose: 4 mg Witch Alisha (Tucks) 1 pad TOP ASDIRECTED PRN PRN Reason: Hemorrhoid pain Last Admin: 04/30/17 06:48 Dose: 1 applic Discontinued Medications Oxytocin 20 unit/ Lactated (Ringer's) 1,002 mls @ 500 mls/hr IV TITRATE [facility] Oxytocin/Lactated Ringer's (Pitocin In Lr 10 Units/1,000 Ml) Confirm Administered Dose 10 unit in 1,000 mls @ as directed IV .STK-MED ONE Stop: 04/30/17 00:53 Last Admin: 04/30/17 06:56 Dose: 10 unit Lidocaine HCl (Xylocaine 1%) Confirm Administered Dose 50 ml .ROUTE .STK-MED ONE Stop: 04/30/17 00:54 Last Admin: 04/30/17 06:52 Dose: Not Given Nalbuphine HCl (Nubain) Confirm Administered Dose 20 mg .ROUTE .STK-MED ONE Stop: 04/30/17 00:45 Last Admin: 04/30/17 06:50 Dose: Not Given Nalbuphine HCl (Nubain) 10 mg IVPUSH Q2H PRN PRN Reason: Pain (moderate 4-6) Last Admin: 04/30/17 00:40 Dose: 10 mg Sodium Chloride (Saline Flush) 10 ml FLUSH ASDIRECTED PRN PRN Reason: Keep Vein Open *Q Meaningful Use (DIS) - VTE *Q VTE Criteria *Q: - Stroke *Q Stroke Criteria *Q: - AMI *Q AMI Criteria *Q:
[2017-05-01 09:32] VITALS: BP 137/84
== END 2017-05-01 08:30 | disposition home or self-care (01) | DRG 775 ==
LOC: JD.OBCHECK 00:35 → JD.OB 00:37 → JD.OBCHECK 00:54 → JD.OB 00:55 → OBSVTOIN 01:00 → JD.OB 01:00
PROVIDERS: ADMIT Obstetrics & Gynecology; ATTEND Obstetrics & Gynecology
PROC: 10E0XZZ Delivery of Products of Conception, External Approach (ICD-10-PCS; principal; 2017-04-30)
DX: O42.02 Full-term premature rupture of membranes, onset of labor within 24 hours of rupture (principal); Z37.0 Single live birth; Z3A.38 38 weeks gestation of pregnancy; O62.3 Precipitate labor; R29.2 Abnormal reflex
CPT/HCPCS: 36415; 59409; 80053; 84550; 85025; A9270-GY; J2300; J2590

== ENCOUNTER → 2017-05-12 | Day surgery (SDC) | payer MEDICAID ==
[~2017-05-12] MED LIST: Dexamethasone 4 MG/ML 5 ML MDV ONE; HYDROmorphone 0.5 MG/0.5 ML Syringe IVPUSH PRN; Ketorolac 30 MG/ML SDV IVPUSH ONE; Lactated Ringers 1,000 ML IV SCH; Lactated Ringers 1,000 ML ONE; Lidocaine 1% 4 ML ONE; Lidocaine 1%/Sod Bicarbonate in NS 8.4% 1 ML Syringe IV PRN; Meperidine PF 50 MG/ML Syringe IVPUSH PRN; Methylergonovine 0.2 MG/1 ML Amp ONE; Midazolam 1 MG/ML 2 ML SDV ONE; Ondansetron 4 MG/2 ML SDV IVPUSH PRN; Ondansetron 4 MG/2 ML SDV ONE; Oxytocin 10 Units/1 ML SDV ONE; Propofol 200 MG/20 ML SDV ONE; Scopolamine 1.5 MG Transdermal Patch TRDERM ONE; Sodium Chloride 0.9% 10 ML Syringe FLUSH PRN; Succinylcholine 200 MG/10 ML MDV ONE; diphenhydrAMINE 50 MG/ML SDV IVPUSH PRN; fentaNYL 100 MCG/2 ML SDV IVPUSH PRN; fentaNYL 250 MCG/5 ML SDV ONE
--- NOTE | 2017-05-12 07:02 | PCM.PREANE ---
Preanesthetic Assessment - Anesthesia/Transfusion/Family Hx Anesthesia History: Prior Anesthesia Without Reaction Family History of Anesthesia Reaction: No Transfusion History: No Prior Transfusion(s) - Review of Systems General: No Symptoms Pulmonary: No Symptoms Cardiovascular: No Symptoms Gastrointestinal: No Symptoms Neurological: No Symptoms, Headache, Numbness, Tingling (Numbness and tingling to hands bilateral) Other: Reports: None - Physical Assessment NPO Status Date: 05/11/17 NPO Status Time: 23:59 Pulse: 69 O2 Sat by Pulse Oximetry: 100 Respiratory Rate: 14 Blood Pressure: 127/56 Temperature: 37.3 C Weight: 99 kg ASA Class: 2 Mental Status: Alert & Oriented x3 Airway Class: Mallampati = 2 Dentition: Reports: Normal Dentition Thyro-Mental Finger Breadths: 3 Mouth Opening Finger Breadths: 3 ROM/Head Extension: Full Lungs: Clear to Auscultation, Normal Respiratory Effort Cardiovascular: Regular Rate, Regular Rhythm - Lab Values: Laboratory Last Values Urine HCG, Qual Positive (NEGATIVE) 05/12/17 06:29 - Allergies Allergies/Adverse Reactions: Allergies Allergy/AdvReac Type Severity Reaction Status Date / Time No Known Allergies Allergy Verified 05/11/17 14:29 - Acknowledgements Anesthesia Type Planned: General Anesthesia Pt an Appropriate Candidate for the Planned Anesthesia: Yes Alternatives and Risks of Anesthesia Discussed w Pt/Guardian: Yes Pt/Guardian Understands and Agrees with Anesthesia Plan: Yes PreAnesthesia Questionnaire Cardiovascular History: Reports: None Respiratory History: Reports: Asthma Gastrointestinal History: Reports: None Genitourinary History: Reports: None 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: Musculoskeletal History: Reports: None Neurological History: Reports: None Psychiatric History: Reports: Depression Endocrine/Metabolic History: Reports: None Hematologic History: Reports: None Immunologic History: Reports: None Oncologic (Cancer) History: Reports: None Dermatologic History: Reports: None - Past Surgical History Head Surgeries/Procedures: Reports: None HEENT Surgical History: Reports: Adenoidectomy, Tonsillectomy Cardiovascular Surgical History: Reports: None Respiratory Surgical History: Reports: None GI Surgical History: Reports: Appendectomy Female Surgical History: Reports: Salpingo-Oophorectomy Male Surgical History: Reports: None Endocrine Surgical History: Reports: None Neurological Surgical History: Reports: None Musculoskeletal Surgical History: Reports: None Oncologic Surgical History: Reports: None Dermatological Surgical History: Reports: None - SUBSTANCE USE Smoking Status *Q: Never Smoker Second Hand Smoke Exposure: No Recreational Drug Use History: No - HOME MEDS Home Medications: Home Meds Ibuprofen 400 mg PO Q6H PRN 05/11/17 [History] Vits #93/Iron Fum/FA [ Formula Tablet] 1 tab PO DAILY 05/11/17 [History] - CURRENT (IN HOUSE) MEDS Current Meds: Current Medications Lactated Ringer's (Ringers, Lactated) 1,000 mls @ 125 mls/hr IV ASDIRECTED ALVAREZ Stop: 05/12/17 23:00 Lidocaine/Sodium Bicarbonate (Buffered Lidocaine 1% In Ns 8.4%) 0.25 ml IV ONETIME PRN PRN Reason: Prior to IV Start Stop: 05/12/17 18:00 Sodium Chloride (Saline Flush) 10 ml FLUSH ASDIRECTED PRN PRN Reason: Keep Vein Open Stop: 05/12/17 18:00 Discontinued Medications Fentanyl (Sublimaze) Confirm Administered Dose 250 mcg .ROUTE .STK-MED ONE Stop: 05/12/17 07:06 Midazolam HCl (Versed 1 Mg/Ml) Confirm Administered Dose 2 mg .ROUTE .STK-MED ONE Stop: 05/12/17 07:06 Propofol (Diprivan 20 Ml) Confirm Administered Dose 200 mg .ROUTE .STK-MED ONE Stop: 05/12/17 07:06
--- NOTE | 2017-05-12 08:20 | PCM.POSTAN ---
POST ANESTHESIA ASSESSMENT - MENTAL STATUS Mental Status: Alert, Oriented - VITAL SIGNS Pulse Rate: 93 SaO2: 100 Resp Rate: 17 Blood Pressure: 110/63 Temperature: 36.9 C - RESPIRATORY Respiratory Status: Respiratory Rate WNL, Airway Patent, O2 Saturation Stable, Supplemental Oxygen - CARDIOVASCULAR CV Status: Pulse Rate WNL, Blood Pressure Stable - GASTROINTESTINAL GI Status: No Symptoms - PAIN Pain Score: 0 - POST OP HYDRATION Hydration Status: Adequate & Stable
--- NOTE | 2017-05-12 09:27 | PCM.OPNOTE ---
- General Post-Op/Procedure Note Date of Surgery/Procedure: 05/12/17 Operative Procedure(s): suction dilation and curettage Findings: placental fragments Pre Op Diagnosis: retained placental tissue Post-Op Diagnosis: Same Anesthesia Technique: General ET Tube Primary Surgeon: Stefanie Norton Pathology: placenta Fluid Replacement, Intraop: 1,000 EBL in mLs: 30 Complications: None Condition: Good Free Text/Narrative:: Intake & Output 05/11/17 05/12/17 05/12/17 22:59 06:59 14:59 Intake Total 500 Balance 500 Patient was taken to operating room where general anesthesia was initiated found to be adequate prepped and draped in normal sterile fashion in dorsal lithotomy position in Arnol stirrups. Self retaining speculum placed anterior lip of the cervix grasped with ring forceps and multiple passes with ring forceps used to obtain 3 approximately golf ball-sized pieces fragments of placenta. Suction curettage performed with a 12 and then an 8 curette. Bimanual exam also confirmed no further placental tissue. Instruments removed. Patient awakened and taken to PACU in good condition.
[2017-05-12] MEDS: Ketorolac 30 MG/ML SDV ONE (09:30)
[2017-05-12 10:32] VITALS: BP 108/62
--- NOTE | 2017-05-12 15:37 | PCM48HPAN ---
Post Anesthesia Note - EVALUATION WITHIN 48HRS OF ANESTHETIC Vital Signs in Normal Range: Yes Patient Participated in Evaluation: Yes Respiratory Function Stable: Yes Airway Patent: Yes Cardiovascular Function Stable: Yes Hydration Status Stable: Yes Pain Control Satisfactory: Yes Nausea and Vomiting Control Satisfactory: Yes Mental Status Recovered: Yes
== END | disposition home or self-care (01) ==
LOC: JD.SDS 06:23
PROVIDERS: ATTEND Obstetrics & Gynecology
DX: O73.0 Retained placenta without hemorrhage (principal); J45.909 Unspecified asthma, uncomplicated; Z90.49 Acquired absence of other specified parts of digestive tract; F32.9 Major depressive disorder, single episode, unspecified; Z90.710 Acquired absence of both cervix and uterus; Z98.890 Other specified postprocedural states; Z79.899 Other long term (current) drug therapy
CPT/HCPCS: 36415; 58120; 81025; 85025; 86850; 86900; 86901; A9270; J0330; J1100; J1885; J2210; J2250; J2405; J2590; J3010; J7120; 00940; J2704

== ENCOUNTER 2019-04-13 15:36 | Emergency (ER) | payer BC ==
[2019-04-13] MEDS ORDERED: Sodium Chloride 0.9% 10 ML Syringe FLUSH PRN (15:56)
[2019-04-13] MEDS ORDERED: Ondansetron 4 MG/2 ML SDV IVPUSH ONE (15:56)
[2019-04-13] MEDS ORDERED: Sodium Chloride 0.9% 1,000 ML IV STA (15:56)
[2019-04-13] MEDS ORDERED: HYDROmorphone 1 MG/ML Syringe IVPUSH ONE (16:01)
--- NOTE | 2019-04-13 17:40 | US ---
Limited obstetrical ultrasound: Multiple real-time images were obtained. Comparison: No previous obstetrical imaging. Dates: Current ultrasound: [facility] 09/26/19, gestational age 16 weeks 2 days presentation: Breech Placenta: Anterior with no findings of abruption or previa Amniotic fluid: Within normal limits Measurements: Heart rate: 150 BPM [place]-rump length: 10.35 cm - 16 weeks 2 days Cervical length: 4.2 cm Impression: 1. Single intrauterine fetus. Dates as noted above. 2. No complicating process is seen by ultrasound at this time. Diagnostic code #1
--- NOTE | 2019-04-13 17:41 | US ---
Limited abdominal ultrasound: Multiple real-time images were obtained of the upper right abdomen. Small hyperechoic finding is noted within the right lobe of the liver measuring 2.2 cm. This is most likely due to hemangioma although follow-up will be recommended. No additional abnormality is seen within the liver. Gallbladder shows no gallstones. No gallbladder wall thickening or biliary duct dilatation is seen. Right kidney shows no hydronephrosis or mass. Visualized pancreas shows no discrete abnormality. Portal vein shows normal hepatopedal flow. Impression: 1. 2.2 cm echogenic abnormality within the right lobe of the liver. This finding is most likely due to hemangioma. Recommend repeat ultrasound after the patient's was finished to confirm stability 2. No additional abnormality is appreciated on right upper quadrant abdominal ultrasound. Diagnostic code #3
--- NOTE | 2019-04-13 17:49 | EDM.PDOC ---
ED HPI GENERAL MEDICAL PROBLEM - General Chief Complaint: Abdominal Pain Stated Complaint: abdominal pain Time Seen by Provider: 04/13/19 15:51 Source of Information: Reports: Patient History Limitations: Reports: No Limitations - History of Present Illness INITIAL COMMENTS - FREE TEXT/NARRATIVE: The patient presents by ambulance for RUQ and epigastric pain. This started about an hour before arrival. She ate a chicken strip from [employer] and then had nausea and vomiting and the pain. She has no fever or chills. She has no chest pain or shortness of breath. She told EMS that she is and 26 weeks gestation and later told them 20 weeks. She went back to OB and she then told them that she was really 16 weeks gestation. She came back to us and was given some zofran by them. She still had the pain. She is . She has never had pain like this before. She still has her gallbladder and appendix. She has no dysuria or hematuria. Onset: Sudden Duration: Hour(s): (1) Location: Reports: Abdomen Quality: Reports: Sharp Severity: Severe Improves with: Reports: None Worsens with: Reports: None Associated Symptoms: Reports: Nausea/Vomiting. 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: Musculoskeletal History: Reports: None Neurological History: Reports: None Psychiatric History: Reports: Depression Endocrine/Metabolic History: Reports: Obesity/BMI 30+ Hematologic History: Reports: None Immunologic History: Reports: None Oncologic (Cancer) History: Reports: None Dermatologic History: Reports: None - Past Surgical History Head Surgeries/Procedures: Reports: None HEENT Surgical History: Reports: Adenoidectomy, Tonsillectomy Cardiovascular Surgical History: Reports: None Respiratory Surgical History: Reports: None GI Surgical History: Reports: Appendectomy Female Surgical History: Reports: D&C, Oophorectomy Neurological Surgical History: Reports: None Oncologic Surgical History: Reports: None Dermatological Surgical History: Reports: None Social & Family History - Family History Family Medical History: Noncontributory - Tobacco Use Smoking Status *Q: Never Smoker - Caffeine Use Caffeine Use: Reports: Coffee - Living Situation & Occupation Living situation: Reports: , with Spouse, with Family (3 kids) Occupation: Unemployed ED ROS GENERAL - Review of Systems Review Of Systems: See Below Constitutional: Reports: No Symptoms HEENT: Reports: No Symptoms Respiratory: Reports: No Symptoms Cardiovascular: Reports: No Symptoms Endocrine: Reports: No Symptoms GI/Abdominal: Reports: Abdominal Pain, Nausea, Vomiting. Denies: Diarrhea : Reports: No Symptoms Musculoskeletal: Reports: No Symptoms Skin: Reports: No Symptoms ED EXAM, GI/ABD - Physical Exam Exam: See Below Exam Limited By: No Limitations General Appearance: Alert, No Apparent Distress, Moderate Distress Ears: Normal External Exam Nose: Normal Inspection Head: Atraumatic, Normocephalic Neck: Other (Enlarged right lobe of the thyroid) Respiratory/Chest: No Respiratory Distress, Lungs Clear, Normal Breath Sounds Cardiovascular: Regular Rate, Rhythm, No Edema, No Murmur GI/Abdominal Exam: Soft, Tender (Moderate tenderness to the RUQ and epigastric area. Uterus felt up to just below the umbilicus.) Course - Vital Signs Last Recorded V/S: Last Vital Signs Temp 98.6 F 04/13/19 15:50 Pulse 90 04/13/19 15:50 Resp BP Pulse Ox 100 04/13/19 15:50 - Orders/Labs/Meds Orders: Active Orders 24 hr Category Date Time Status Peripheral IV Care [RC] . DIRECTED Care 04/13/19 16:00 Active HYDROmorphone [Dilaudid] Med 04/13/19 18:51 Once 0.5 mg IVPUSH ONETIME ONE Pantoprazole [ProTONIX IV] Med 04/13/19 18:51 Once 40 mg IVPUSH ONETIME ONE Sodium Chloride 0.9% [Saline Flush] Med 04/13/19 15:56 Active 10 ml FLUSH ASDIRECTED PRN Peripheral IV Insertion Adult [OM.PC] Stat Oth 04/13/19 15:56 Ordered Medication Orders Sodium Chloride (Saline Flush) 10 ml FLUSH ASDIRECTED PRN PRN Reason: Keep Vein Open Last Admin: 04/13/19 17:25 Dose: 10 ml Labs: Laboratory Tests 04/13/19 04/13/19 04/13/19 Range/Units 16:30 16:30 17:32 WBC 8.98 (3.98-10.04) K/mm3 RBC 3.88 L (3.98-5.22) M/mm3 Hgb 11.2 (11.2-15.7) gm/dl Hct 33.2 L (34.1-44.9) % MCV 85.6 D (79.4-94.8) fl MCH 28.9 (25.6-32.2) pg MCHC 33.7 (32.2-35.5) g/dl RDW Std Deviation 41.1 (36.4-46.3) fL Plt Count 200 (182-369) K/mm3 MPV 9.9 (9.4-12.3) fl Neut % (Auto) 80.4 H (34.0-71.1) % Lymph % (Auto) 14.3 L (19.3-51.7) % [place] % (Auto) 4.7 (4.7-12.5) % Eos % (Auto) 0.3 L (0.7-5.8) Baso % (Auto) 0.1 (0.1-1.2) % Neut # (Auto) 7.22 H (1.56-6.13) K/mm3 Lymph # (Auto) 1.28 (1.18-3.74) K/mm3 [place]aden # (Auto) 0.42 H (0.24-0.36) K/mm3 Eos # (Auto) 0.03 L (0.04-0.36) K/mm3 Baso # (Auto) 0.01 (0.01-0.08) K/mm3 Sodium 137 (136-145) mEq/L Potassium 3.5 (3.5-5.1) mEq/L Chloride 105 (98-107) mEq/L Carbon Dioxide 24 (21-32) mEq/L Anion Gap 11.5 (5-15) BUN 8 (7-18) mg/dL Creatinine 0.5 L (0.55-1.02) mg/dL Est Cr Clr Drug Dosing 158.22 mL/min Estimated GFR (MDRD) > 60 (>60) mL/min BUN/Creatinine Ratio 16.0 (14-18) Glucose 100 (74-106) mg/dL Calcium 8.5 (8.5-10.1) mg/dL Total Bilirubin 0.4 (0.2-1.0) mg/dL AST 62 H (15-37) U/L ALT 54 (14-59) U/L Alkaline Phosphatase 45 L (46-116) U/L Total Protein 6.3 L (6.4-8.2) g/dl Albumin 3.0 L (3.4-5.0) g/dl Globulin 3.3 gm/dL Albumin/Globulin Ratio 0.9 L (1-2) Lipase 99 (73-393) U/L Free T4 0.78 (0.76-1.46) ng/dL TSH 3rd Generation 1.794 (0.358-3.74) uIU/mL Urine Color Yellow (Yellow) Urine Appearance Clear (Clear) Urine pH 7.0 (5.0-8.0) Ur Specific [place] 1.020 (1.005-1.030) Urine Protein Negative (Negative) Urine Glucose (UA) Negative (Negative) Urine Ketones 2+ H (Negative) Urine Occult Blood Negative (Negative) Urine Nitrite Negative (Negative) Urine Bilirubin Negative (Negative) Urine Urobilinogen 1.0 (0.2-1.0) Ur Leukocyte Esterase Trace H (Negative) Urine RBC 0-5 (0-5) /hpf Urine WBC 5-10 H (0-5) /hpf Ur Squamous Epith Cells 75-100 H (0-5) /hpf Urine Bacteria Few (FEW) /hpf Urine Mucus Not seen (FEW) /hpf Meds: Medications Generic Name Dose Route Start Last Admin Trade Name Freq PRN Reason Stop Dose Admin Sodium Chloride 10 ml 04/13/19 15:56 04/13/19 17:25 Saline Flush FLUSH 10 ml ASDIRECTED PRN Administration Keep Vein Open Discontinued Medications Generic Name Dose Route Start Last Admin Trade Name Freq PRN Reason Stop Dose Admin Hydromorphone HCl 1 mg 04/13/19 16:01 04/13/19 16:16 Dilaudid IVPUSH 04/13/19 16:02 1 mg ONETIME ONE Administration Sodium Chloride 1,000 mls @ 1,000 mls/hr 04/13/19 15:56 04/13/19 16:15 Normal Saline IV 04/13/19 16:55 1,000 mls/hr .BOLUS STA Administration Ondansetron HCl 4 mg 04/13/19 15:56 04/13/19 17:23 Zofran IVPUSH 04/13/19 15:57 Not Given ONETIME ONE - Re-Assessments/Exams Free Text/Narrative Re-Assessment/Exam: 04/13/19 18:34 I ordered an IV NS 1L bolus, dilaudid 1mg IV, labs, UA and an US of her RUQ and pelvis. Her CBC looks good. Her AST is slightly elevated at 62. Her Free T4 is normal. Her TSH is normal. Her UA shows no UTI. Her US shows a 2.2cm echogenic abnormality within the right love of the liver. This finding is most likely due to hemangioma. Recommend repeat US after the patient's was finished to confirm stability. No additional abnormality is appreciated on right upper quadrant abdominal US. The OB US shows single intrauterine fetus. With a heart rate of 150bpm at 16 weeks and 2 days. No complicating process is seen by US at this time. 04/13/19 18:51 She has more pain so I ordered dilaudid 0.5mg IV and protonix 40mg IV. I will get her on protonix and have her avoid fried fatty foods and follow up with Dr Tripp. Departure - Departure Time of Disposition: 18:55 Disposition: Home, Self-Care 01 Condition: Good Clinical Impression: Enlarged thyroid gland Abdominal pain Qualifiers: Abdominal location: upper abdomen, unspecified Qualified Code(s): R10.10 - Upper abdominal pain, unspecified - Discharge Information *PRESCRIPTION DRUG MONITORING PROGRAM REVIEWED*: No *COPY OF PRESCRIPTION DRUG MONITORING REPORT IN PATIENT JIN: No Prescriptions: Hydrocodone/Acetaminophen [Hydrocodon-Acetaminophen 5-325] 1 - 2 each PO Q6HR PRN #6 tablet PRN Reason: Pain Omeprazole Magnesium [Prilosec Otc] 20 mg PO DAILY #20 tablet. Referrals: Chuck Tripp MD [Primary Care Provider] - 1 Week Forms: ED Department Discharge Additional Instructions: Take the prilosec daily. Avoid fried, fatty food. Follow up with Dr Tripp this week. I have ordered an US of your thyroid for Monday at 7:30. There was a hemangioma found in your liver the radiologist recommends following up after delivery to have another US. Please return if you are worse. - My Orders Last 24 Hours: My Active Orders 04/13/19 15:56 Sodium Chloride 0.9% [Saline Flush] 10 ml FLUSH ASDIRECTED PRN Peripheral IV Insertion Adult [OM.PC] Stat 04/13/19 16:00 Peripheral IV Care [RC] . DIRECTED 04/13/19 18:51 HYDROmorphone [Dilaudid] 0.5 mg IVPUSH ONETIME ONE Pantoprazole [ProTONIX IV] 40 mg IVPUSH ONETIME ONE - Assessment/Plan Last 24 Hours: My Active Orders 04/13/19 15:56 Sodium Chloride 0.9% [Saline Flush] 10 ml FLUSH ASDIRECTED PRN Peripheral IV Insertion Adult [OM.PC] Stat 04/13/19 16:00 Peripheral IV Care [RC] . DIRECTED 04/13/19 18:51 HYDROmorphone [Dilaudid] 0.5 mg IVPUSH ONETIME ONE Pantoprazole [ProTONIX IV] 40 mg IVPUSH ONETIME ONE
[2019-04-13] MEDS ORDERED: Pantoprazole 40 MG Vial IVPUSH ONE (18:51)
[2019-04-13] MEDS ORDERED: HYDROmorphone 0.5 MG/0.5 ML Syringe IVPUSH ONE (18:51)
[2019-04-13 19:50] VITALS: BP 104/56; PULSE 86
== END 2019-04-13 19:44 | disposition home or self-care (01) ==
LOC: JD.ED 15:36 → JD.MS 15:36 → JD.OBCHECK 15:36 → JD.OB 15:37 → JD.MS 15:44 → EDSTATUS 15:47 → JD.OB 16:10 → JD.ED 19:44
DX: O99.282 Endocrine, nutritional and metabolic diseases complicating pregnancy, second trimester (principal); E04.9 Nontoxic goiter, unspecified; O26.892 Other specified pregnancy related conditions, second trimester; R10.10 Upper abdominal pain, unspecified; O99.512 Diseases of the respiratory system complicating pregnancy, second trimester; J45.909 Unspecified asthma, uncomplicated; Z3A.16 16 weeks gestation of pregnancy
CPT/HCPCS: 36415; 76705; 76815; 80053; 81001; 83690; 84439; 84443; 85025; 96361; 96374; 96375; 96376; 99284; C9113; J1170; J7040

== ENCOUNTER 2019-09-16 15:20 | Inpatient (IN) | payer BC ==
[~2019-09-16 15:20] MED LIST changes: +Bupivacaine 0.25% 10 ML SDV ONE; -Dexamethasone 4 MG/ML 5 ML MDV ONE; -HYDROmorphone 0.5 MG/0.5 ML Syringe IVPUSH PRN; -Ketorolac 30 MG/ML SDV IVPUSH ONE; -Lactated Ringers 1,000 ML IV SCH; -Lactated Ringers 1,000 ML ONE; -Lidocaine 1% 4 ML ONE; -Lidocaine 1%/Sod Bicarbonate in NS 8.4% 1 ML Syringe IV PRN; -Meperidine PF 50 MG/ML Syringe IVPUSH PRN; -Methylergonovine 0.2 MG/1 ML Amp ONE; -Midazolam 1 MG/ML 2 ML SDV ONE; -Ondansetron 4 MG/2 ML SDV IVPUSH PRN; -Ondansetron 4 MG/2 ML SDV ONE; -Oxytocin 10 Units/1 ML SDV ONE; -Propofol 200 MG/20 ML SDV ONE; -Scopolamine 1.5 MG Transdermal Patch TRDERM ONE; -Sodium Chloride 0.9% 10 ML Syringe FLUSH PRN; -Succinylcholine 200 MG/10 ML MDV ONE; -diphenhydrAMINE 50 MG/ML SDV IVPUSH PRN; -fentaNYL 100 MCG/2 ML SDV IVPUSH PRN; -fentaNYL 250 MCG/5 ML SDV ONE
[2019-09-16] MEDS: Lactated Ringers 1,000 ML IV SCH ×2 (15:20→15:53)
[2019-09-16] MEDS ORDERED: Sodium Chloride 0.9% 10 ML Syringe FLUSH PRN (15:23)
[2019-09-16] MEDS ORDERED: Ondansetron 4 MG/2 ML SDV IVPUSH PRN ×2 (15:23→15:42)
[2019-09-16] MEDS ORDERED: Oxytocin/Lactated Ringers 10 UNIT/1,000 ML BAG IV SCH (15:30)
[2019-09-16] MEDS ORDERED: ePHEDrine 50 MG/ML SDV IVPUSH PRN (15:42)
[2019-09-16] MEDS ORDERED: fentaNYL 100 MCG/2 ML SDV EPIDUR PRN (15:42)
[2019-09-16] MEDS ORDERED: Bupivacaine/fentaNYL/NS 100 ML Bag EPIDUR SCH (15:45)
--- NOTE | 2019-09-16 15:45 | PCM.PREANE ---
Preanesthetic Assessment - Anesthesia/Transfusion/Family Hx Anesthesia History: Prior Anesthesia Without Reaction Family History of Anesthesia Reaction: No Transfusion History: No Prior Transfusion(s) Intubation History: Unknown - Review of Systems General: No Symptoms Pulmonary: No Symptoms (asthma) Cardiovascular: No Symptoms Gastrointestinal: No Symptoms Neurological: No Symptoms, Numbness (tingling bilateral hands) Other: Reports: None - Physical Assessment NPO Status Date: 09/16/19 NPO Status Time: 12:00 Vital Signs: Last Vital Signs Temp 37.7 C 09/16/19 15:23 Pulse 108 H 09/16/19 15:23 Resp 14 09/16/19 15:23 BP 124/81 09/16/19 15:23 Pulse Ox 98 09/16/19 15:23 Height: 1.73 m Weight: 123.377 kg ASA Class: 2 Mental Status: Alert & Oriented x3 Airway Class: Mallampati = 2 Dentition: Reports: Normal Dentition, Caries Thyro-Mental Finger Breadths: 3 Mouth Opening Finger Breadths: 3 ROM/Head Extension: Full Lungs: Clear to Auscultation, Normal Respiratory Effort Cardiovascular: Regular Rate, Regular Rhythm - Lab Values: All labs reviewed and noted and within acceptable ranges to proceed with epidural if desired. - Allergies Allergies/Adverse Reactions: Allergies Allergy/AdvReac Type Severity Reaction Status Date / Time No Known Allergies Allergy Verified 09/16/19 15:37 - Anesthesia Plan Pre-Op Medication Ordered: None - Acknowledgements Anesthesia Type Planned: Epidural Pt an Appropriate Candidate for the Planned Anesthesia: Yes Alternatives and Risks of Anesthesia Discussed w Pt/Guardian: Yes Pt/Guardian Understands and Agrees with Anesthesia Plan: Yes PreAnesthesia Questionnaire HEENT History: Reports: Impaired Vision Cardiovascular History: Reports: None Respiratory History: Reports: Asthma Gastrointestinal History: Reports: None Genitourinary History: Reports: None 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 History: Reports: None Neurological History: Reports: None Psychiatric History: Reports: Depression Endocrine/Metabolic History: Reports: Obesity/BMI 30+ Hematologic History: Reports: None Immunologic History: Reports: None Oncologic (Cancer) History: Reports: None Dermatologic History: Reports: None - Past Surgical History Head Surgeries/Procedures: Reports: None HEENT Surgical History: Reports: Adenoidectomy, Tonsillectomy Cardiovascular Surgical History: Reports: None Respiratory Surgical History: Reports: None GI Surgical History: Reports: Appendectomy Female Surgical History: Reports: D&C, Oophorectomy Neurological Surgical History: Reports: None Oncologic Surgical History: Reports: None Dermatological Surgical History: Reports: None - HOME MEDS Home Medications: Home Meds Acetaminophen [Tylenol] 650 mg PO Q6HR PRN 09/08/19 [History] - CURRENT (IN HOUSE) MEDS Current Meds: Current Medications Ephedrine Sulfate (Ephedrine Sulfate) 5 mg IVPUSH ASDIRECTED PRN PRN Reason: Hypotension Fentanyl (Sublimaze) 100 mcg EPIDUR Q3H PRN PRN Reason: Pain Fentanyl/Bupivacaine HCl (Fentanyl/Bupivacaine/Ns 2 Mcg-0.125% 100 Ml) 100 ml EPIDUR ASDIRECTED ALVAREZ Lactated Ringer's (Ringers, Lactated) 1,000 mls @ 100 mls/hr IV ASDIRECTED ALVAREZ Oxytocin/Lactated Ringer's (Pitocin In Lr 10 Units/1,000 Ml) 10 unit in 1,000 mls @ 500 mls/hr IV .CONTINUOUS ALVAREZ Ondansetron HCl (Zofran) 4 mg IVPUSH Q4H PRN PRN Reason: Nausea/Vomiting Ondansetron HCl (Zofran) 4 mg IVPUSH ONETIME PRN PRN Reason: Nausea/Vomiting Sodium Chloride (Saline Flush) 10 ml FLUSH ASDIRECTED PRN PRN Reason: Keep Vein Open
--- NOTE | 2019-09-16 18:09 | PCM.LDHP ---
L&D History of Present Illness - General Date of Service: 09/16/19 Admit Problem/Dx: Patient Status Order with Admit Dx/Problem 09/16/19 15:23 Patient Status [ADT] Routine Admission Diagnosis/Problem Admission Diagnosis/Problem 09/16/19 18:00 Alyson is a 29-year-old 4 para 2/07/19 white female at 38-4/7 weeks gestational age with an ASHTYN of 09/26/2019 who is admitted in active labor with very rapidly progressing cervical dilation. Source of Information: Patient History Limitations: Reports: No Limitations - History of Present Illness Introduction:: Alyson is a 29-year-old 4 para 2/07/19 white female at 38-4/7 weeks gestational age with an ASHTYN of 09/26/2019 who is admitted in active labor with very rapidly progressing cervical dilation.Contractions started earlier today. Patient's progress. Upon arrival she is partially 4 cm dilated but quickly dilated up to 8 cm. She is found to have spontaneous rupture membranes with resultant clear amniotic fluid. History: 4 para 2/07/19 with an ASHTYN of 09/26/20195 start laststarting 2018 and supported by 3 ultrasounds done later in the . Patient had normal menarche.'s LMP 12/20/2018. Cycles every month. Patient's had 3 normal spontaneous vaginal deliveries 1 female 2 males. Largest baby 7 lbs. 6 oz. No problems after with pregnancies. Did have a D&C after last because of the continued post bleeding. Patient is group B strep negative. She had children as she is hypothyroid on replacement. She is breast-feeding. He is suffered from depression and anxiety and has had some relationship concerns and stresses related to her situation. Patient had first visit on 03/28/2019 , was seen on a regular basis. Weight gain was from 227 pounds to 233 pounds. Vital signs are stable throughout the course and her fundal height growth was appropriate. Patient received her flu vaccination and her diphtheria and pertussis tetanus vaccination on May 02, 2019 and September 04, 2019. She is rubella immune. Laboratory testing in : Blood is AB+ with negative [place] screen. Hemoglobin first pelvis was 12.0 g/dL. Platelets are 221,000. She is rubella immune. RPR is nonreactive. Urine culture was negative. Hepatitis B surface antigen and HIV assays were both negative. Chlamydia and gonorrhea assays are both negative. TSH done on 05/09/2019 was normal at 1.493 million units per liter. Second trimester testing showed hemoglobin of 11.0 g/dL platelets are 199 ,000. Her 1 hour GTT was normal at 88. Additional labs done on 06/21/2019 showed TSH 1.339normal. Free T4 and TSH done on 08/22/2019 was 0.71 and 1.3 respectively. Her group B strep screen was negative. Allergies: None Medications: 1. vitamins 1 daily Past medical history: 1. Normal spontaneous vaginal delivery 3 and prepped 2. Hypothyroidism on replacement 3. Childhood asthma now resolved Past surgical history: Para 1. Appendectomy and prepped 2. Left oophorectomy 3 D&C 2017 for bleeding Family history: Brothers alive and well as his father and 1 brother. 2 sisters are alive and well. Maternal grandmother is alive and well. Maternal grandfather secondary to heart disease. Paternal grandmother is regular heart disease at age 50. Paternal grandfather is secondary to motor vehicle accident. No family history of cancer, bleeding or clotting disorders, anesthesia principal 8 pounds. Social history: Patient is . Lives in [place]. Is [id number] mom. is Hair-T. He does not use any significant most alcohol, drugs or tobacco. Review of systems: In general patient has no complaints. Skin: Negative Lungs: No infectious symptoms or shortness of breath Cardiovascular: No chest pain or exercise intolerance Breasts: No lumps, changes in size, pain, dimpling, discharge or axillary or supraclavicular concerns. GI: Negative : Contractions as reported above, spontaneous rupture membranes as reported above Musculoskeletal: Negative Neurological: Negative In general the patient is well-developed, well-nourished, pleasant female of stated age in no acute distress. Skin is warm dry without lesions. HEENT, neck and back within normal limits. Lungs are clear with good breath sounds in all lung acosta. Cardiovascular exam shows regular and rhythm without murmurs. Breasts exam not performed as was done first visit found to be normal. Abdomen is is gravid with fundal height of 40 cm on last evaluation 09/09/2019. Genital and bimanual on admission was 4 cm dilated. Spontaneous rupture membranes was confirmed. Extremities and neurological exam are grossly within normal limits. Pain Score: 10 - Related Data Allergies/Adverse Reactions: Allergies Allergy/AdvReac Type Severity Reaction Status Date / Time No Known Allergies Allergy Verified 09/16/19 15:37 Home Medications: Home Meds Acetaminophen [Tylenol] 650 mg PO Q6HR PRN 09/08/19 [History] Past Medical History HEENT History: Reports: Impaired Vision Cardiovascular History: Reports: None Respiratory History: Reports: Asthma Gastrointestinal History: Reports: None Genitourinary History: Reports: None ROUTE RIDER History: Reports: Musculoskeletal History: Reports: None Neurological History: Reports: None Psychiatric History: Reports: Depression Endocrine/Metabolic History: Reports: Obesity/BMI 30+ Other Endocrine/Metabolic History: enlarged thyroid Hematologic History: Reports: None Immunologic History: Reports: None Oncologic (Cancer) History: Reports: None Dermatologic History: Reports: None - Infectious Disease History Infectious Disease History: Reports: Chicken Pox - Past Surgical History Head Surgeries/Procedures: Reports: None HEENT Surgical History: Reports: Adenoidectomy, Tonsillectomy Cardiovascular Surgical History: Reports: None Respiratory Surgical History: Reports: None GI Surgical History: Reports: Appendectomy Female Surgical History: Reports: D&C, Oophorectomy Neurological Surgical History: Reports: None Oncologic Surgical History: Reports: None Dermatological Surgical History: Reports: None Social & Family History - Family History Family Medical History: Noncontributory - Tobacco Use Smoking Status *Q: Never Smoker - Caffeine Use Caffeine Use: Reports: Coffee - Recreational Drug Use Recreational Drug Use: No - Living Situation & Occupation Living situation: Reports: , with Spouse, with Family (3 kids) Occupation: Unemployed H&P Review of Systems - Review of Systems: Review Of Systems: See Below L&D Exam - Exam Exam: See Below - Vital Signs Vital Signs: Last Vital Signs Temp 37.7 C 09/16/19 15:23 Pulse 108 H 09/16/19 15:23 Resp 14 09/16/19 15:23 BP 124/81 09/16/19 15:23 Pulse Ox 98 09/16/19 15:23 Weight: 123.377 kg - Patient Data Lab Results Last 24 hrs: Laboratory Results - last 24 hr 09/16/19 Range/Units 15:32 WBC 9.65 (3.98-10.04) K/mm3 RBC 3.79 L (3.98-5.22) M/mm3 Hgb 11.4 (11.2-15.7) gm/dl Hct 35.3 (34.1-44.9) % MCV 93.1 D (79.4-94.8) fl MCH 30.1 (25.6-32.2) pg MCHC 32.3 (32.2-35.5) g/dl RDW Std Deviation 45.1 (36.4-46.3) fL Plt Count 217 (182-369) K/mm3 MPV 9.7 (9.4-12.3) fl Neut % (Auto) 73.1 H (34.0-71.1) % Lymph % (Auto) 18.5 L (19.3-51.7) % [place] % (Auto) 7.0 (4.7-12.5) % Eos % (Auto) 0.4 L (0.7-5.8) Baso % (Auto) 0.2 (0.1-1.2) % Neut # (Auto) 7.04 H (1.56-6.13) K/mm3 Lymph # (Auto) 1.79 (1.18-3.74) K/mm3 [place] # (Auto) 0.68 H (0.24-0.36) K/mm3 Eos # (Auto) 0.04 (0.04-0.36) K/mm3 Baso # (Auto) 0.02 (0.01-0.08) K/mm3 Result Diagrams: 09/16/19 15:32 Problem List Initiated/Reviewed/Updated: Yes Orders Last 24hrs: Active Orders 24 hr Category Date Time Status Patient Status [ADT] Routine ADT 09/16/19 15:23 Active Activity as Tolerated [RC] PFP Care 09/16/19 15:23 Active Communication Order [RC] ASDIRECTED Care 09/16/19 15:23 Active Heart Tones [RC] ASDIRECTED Care 09/16/19 15:24 Active Non Stress Test [RC] PER UNIT ROUTINE Care 09/16/19 15:23 Active Notify Provider [RC] ASDIRECTED Care 09/16/19 15:42 Active Notify Provider [RC] PFP Care 09/16/19 15:23 Active Notify Provider [RC] PRN Care 09/16/19 15:23 Active Oxygen Therapy [RC] ASDIRECTED Care 09/16/19 15:42 Active Peripheral IV Care [RC] . DIRECTED Care 09/16/19 15:24 Active Pulse Oximetry [RC] ASDIRECTED Care 09/16/19 15:42 Active Pump Management, Intrathecal [RC] ASDIRECTED Care 09/16/19 15:25 Active Urinary Catheter Assessment [RC] ASDIRECTED Care 09/16/19 15:23 Active Vital Signs [RC] PER UNIT ROUTINE Care 09/16/19 15:23 Active Regular Diet [DIET] Diet 09/16/19 Dinner Active RAPID PLASMA REAGIN,RPR [CHEM] Routine Lab 09/16/19 15:32 Received Bupivacaine/fentaNYL/NS [fentaNYL/Bupivacaine/NS 2 MCG- Med 09/16/19 15:45 Active 0.125% 100 ML] 100 ml EPIDUR ASDIRECTED Lactated Ringers [Ringers, Lactated] 1,000 ml Med 09/16/19 15:30 Active IV ASDIRECTED Ondansetron [Zofran] Med 09/16/19 15:42 Active 4 mg IVPUSH ONETIME PRN Ondansetron [Zofran] Med 09/16/19 15:23 Active 4 mg IVPUSH Q4H PRN Oxytocin/Lactated Ringers [Pitocin in LR 10 Units/1,000 Med 09/16/19 15:30 Active ML] 10 unit in 1,000 ml IV .CONTINUOUS Sodium Chloride 0.9% [Saline Flush] Med 09/16/19 15:23 Active 10 ml FLUSH ASDIRECTED PRN ePHEDrine [ePHEDrine sulfate] Med 09/16/19 15:42 Active 5 mg IVPUSH ASDIRECTED PRN fentaNYL [Sublimaze] Med 09/16/19 15:42 Active 100 mcg EPIDUR Q3H PRN Electronic Heart Tones Ext w TOCO [WOMSER] Oth 09/16/19 15:23 Ordered Routine Electronic Heart Tones Internal [WOMSER] Per Unit Oth 09/16/19 15:23 Ordered Routine Peripheral IV Insertion Adult [OM.PC] Routine Oth 09/16/19 15:23 Ordered Resuscitation Status Routine Resus Stat 09/16/19 15:23 Ordered Medication Orders Ephedrine Sulfate (Ephedrine Sulfate) 5 mg IVPUSH ASDIRECTED PRN PRN Reason: Hypotension Fentanyl (Sublimaze) 100 mcg EPIDUR Q3H PRN PRN Reason: Pain Last Admin: 09/16/19 16:04 Dose: 100 mcg Fentanyl/Bupivacaine HCl (Fentanyl/Bupivacaine/Ns 2 Mcg-0.125% 100 Ml) 100 ml EPIDUR ASDIRECTED [facility] Last Admin: 09/16/19 16:04 Dose: 100 ml Lactated Ringer's (Ringers, Lactated) 1,000 mls @ 100 mls/hr IV ASDIRECTED [facility] Last Infusion: 09/16/19 16:50 Dose: 100 mls/hr Infusion: 09/16/19 15:53 Dose: 999 mls/hr Admin: 09/16/19 15:53 Dose: 100 mls/hr Infusion: 09/16/19 15:53 Dose: 100 mls/hr Admin: 09/16/19 15:20 Dose: 100 mls/hr Oxytocin/Lactated Ringer's (Pitocin In Lr 10 Units/1,000 Ml) 10 unit in 1,000 mls @ 500 mls/hr IV .CONTINUOUS [facility] Last Admin: 09/16/19 17:14 Dose: 500 mls/hr Ondansetron HCl (Zofran) 4 mg IVPUSH Q4H PRN PRN Reason: Nausea/Vomiting Ondansetron HCl (Zofran) 4 mg IVPUSH ONETIME PRN PRN Reason: Nausea/Vomiting Sodium Chloride (Saline Flush) 10 ml FLUSH ASDIRECTED PRN PRN Reason: Keep Vein Open Assessment/Plan Comment:: 1. 38-4/7 week intrauterine , early labor, spontaneous rupture murmurs with resulting clear amniotic fluid. 2. Patient desires epidural 3. Patient plans to breast-feed 4. Patient is hypothyroid on medications and clinically euthyroid 5. Risk factors also included history of depression and anxiety. 6. Patient is up-to-date regarding her flu shot and her diphtheria pertussis tetanus immunization. She is rubella immune. Plan: 1. Spontaneous vaginal 2. Epidural When necessary 3. Breast-feeding decision.
--- NOTE | 2019-09-16 18:17 | PCM.SN ---
- Free Text/Narrative Note: Delivery note: Alyson is a 29-year-old 4 para 2/07/19 white female at 38-4/7 weeks gestational age with an ASHTYN of 09/26/2019 who is admitted in active labor with very rapidly progressing cervical dilation.Progressed very rapidly declined cervical dilation. In 4 contractions she pushed and delivered a viable, potts, 3760 g (8 pound 4.6 ounce) female with Apgars of 8 and 8, length of 20 inches at 1714 hours on 09/16/2019. Baby was placed on mom's abdomen and nose were mouth bulb suctioned. The baby was dried. Pitocin was increased to 500 mL to facilitate increase in uterine tone and decreased likelihood of bleeding. The umbilical cord was allowed to pulsate 2-3 minutes and was clamped 2 and cut. 3 vessels were noted. Cord blood was obtained. Placenta proceeded to deliver at 1722 hrs. in a Ga fashion. It appeared intact and complete and was discarded per patient desire. The perineum was intact and no sutures required. Assessment blood loss was 200 mL. Condition: Good Patient plans to breast-feed.
[2019-09-16] MEDS ORDERED: Witch Hazel Medicated Pads 40/Jar TOP PRN (19:29)
[2019-09-16] MEDS ORDERED: Benzocaine/Menthol 20%-0.5% Spray 56 GM Canister TOP PRN (19:29)
[2019-09-16] MEDS ORDERED: Docusate Sodium 100 MG Cap PO PRN (19:29)
[2019-09-16] MEDS ORDERED: Acetaminophen 325 MG Tab PO PRN (19:29)
[2019-09-16] MEDS: Ibuprofen 600 MG Tab PO PRN (23:10)
--- NOTE | 2019-09-17 08:22 | PCM48HPAN ---
Post Anesthesia Note - EVALUATION WITHIN 48HRS OF ANESTHETIC Vital Signs in Normal Range: Yes Patient Participated in Evaluation: Yes Respiratory Function Stable: Yes Airway Patent: Yes Cardiovascular Function Stable: Yes Hydration Status Stable: Yes Pain Control Satisfactory: Yes Nausea and Vomiting Control Satisfactory: Yes Mental Status Recovered: Yes Vital Signs: Last Vital Signs Temp 36.5 C 09/17/19 02:16 Pulse 68 09/17/19 02:16 Resp 18 09/17/19 02:16 BP 111/63 09/17/19 02:16 Pulse Ox 96 09/17/19 02:16
[2019-09-17] MEDS: Prenatal Multivitamin with Calcium/Folic Acid/Iron Tab PO SCH (08:24)
[2019-09-17] MEDS: Ibuprofen 600 MG Tab PO PRN ×3 (08:24→20:32)
[2019-09-17] MEDS: Benzonatate 100 MG Cap PO PRN (18:21)
[2019-09-18] MEDS: Benzonatate 100 MG Cap PO PRN (04:26)
--- NOTE | 2019-09-18 07:22 | PCM.DCSUM1 ---
Discharge Summary - Hospital Course Free Text/Narrative:: Alyson is a 29-year-old 4 para 2/07/19 white female at 38-4/7 weeks gestational age with an ASHTYN of 09/26/2019 who is admitted in active labor with very rapidly progressing cervical dilation.Progressed very rapidly declined cervical dilation. In 4 contractions she pushed and delivered a viable, potts, 3760 g (8 pound 4.6 ounce) female infant with Apgars of 8 and 8, length of 20 inches at 1714 hours on 09/16/2019. Baby was placed on mom's abdomen and nose were mouth bulb suctioned. The baby was dried. Pitocin was increased to 500 mL to facilitate increase in uterine tone and decreased likelihood of bleeding. The umbilical cord was allowed to pulsate 2-3 minutes and was clamped 2 and cut. 3 vessels were noted. Cord blood was obtained. Placenta proceeded to deliver at 1722 hrs. in a Ga fashion. It appeared intact and complete and was discarded per patient desire. The perineum was intact and no sutures required. Assessment blood loss was 200 mL. Condition: Good Patient plans to breast-feed. Patient is doing well. She is ambulating well, has minimal lochia, voiding without concerns and has normal vital signs. She is desiring discharge home. Condition: Good Diagnosis: Stroke: No - Discharge Data Discharge Date: 09/18/19 Discharge Disposition: Home, Self-Care 01 Condition: Good - Referral to Home Health Primary Care Physician: Chuck Tripp MD - Patient Instructions Diet: Regular Diet as Tolerated (Nursing diet with increase calories and calcium as recommended) Driving: May Drive Today Showering/Bathing: May Shower (May take a bath) Notify Provider of: Fever, Increased Pain, Swelling and Redness, Nausea and/or Vomiting - Discharge Plan Home Medications: Home Meds Acetaminophen [Tylenol] 650 mg PO Q6HR PRN 09/08/19 [History] Acetaminophen [Tylenol] 650 mg PO Q4H PRN tablet 09/18/19 [Rx] Ibuprofen [Motrin] 600 mg PO Q4H PRN tablet 09/18/19 [Rx] Vit with Ca/FA/Iron [ Plus Iron] 1 each PO DAILY tablet [Rx] Referrals: Chuck Tripp MD [Primary Care Provider] - (Return to clinicDr. Qasim or Tracy marjorie nurse practitioner, in 2 weeks.) - Discharge Summary/Plan Comment DC Time >30 min.: No Discharge Summary/Plan Comment: Discharge instructions: 1. Discharge home 2. Diet, activity and follow-up discussed with patient. Recommend nursing diet with increased calories and calcium. 3. Precautions given concern increased pain, bleeding, temperature, signs/ symptoms of DVT/PE. 4. Medications per home medication was printed, discussed with and given to the patient. 5. Return [facility] Tripp [facility]. Diagnosis: Term -delivered Condition: Good - Patient Data Vitals - Most Recent: Last Vital Signs Temp 36.6 C 09/18/19 04:10 Pulse 90 09/18/19 04:10 Resp 16 09/18/19 04:10 BP 134/104 H 09/18/19 04:10 Pulse Ox 98 09/18/19 04:10 Weight - Most Recent: 123.377 kg I&O - Last 24 hours: Intake & Output 09/17/19 09/18/19 09/18/19 22:59 06:59 14:59 Intake Total 300 Balance 300 Med Orders - Current: Current Medications Acetaminophen (Tylenol) 650 mg PO Q4H PRN PRN Reason: mild pain or fever Last Admin: 09/18/19 06:54 Dose: 650 mg Benzocaine/Menthol (Dermoplast Pain Relief Bates) 0 gm TOP ASDIRECTED PRN PRN Reason: Perineal Comfort Measure Benzonatate (Tessalon Perles) 100 mg PO TID PRN PRN Reason: Cough Last Admin: 09/18/19 04:26 Dose: 100 mg Docusate Sodium (Colace) 100 mg PO BID PRN PRN Reason: Constipation Ibuprofen (Motrin) 600 mg PO Q4H PRN PRN Reason: Mild pain or fever Last Admin: 09/17/19 20:32 Dose: 600 mg Prenat Multivit/[place]/Iron/Folic Ac ( Plus Iron) 1 each PO DAILY ALVAREZ Last Admin: 09/17/19 08:24 Dose: 1 each Witch Alisha (Tucks) 1 pad TOP ASDIRECTED PRN PRN Reason: Pain Discontinued Medications Bupivacaine HCl (Sensorcaine-Mpf 0.25%) 10 ml .ROUTE .STK-MED ONE Stop: 09/16/19 00:01 Ephedrine Sulfate (Ephedrine Sulfate) 5 mg IVPUSH ASDIRECTED PRN PRN Reason: Hypotension Fentanyl (Sublimaze) 100 mcg EPIDUR Q3H PRN PRN Reason: Pain Last Admin: 09/16/19 16:04 Dose: 100 mcg Fentanyl/Bupivacaine HCl (Fentanyl/Bupivacaine/Ns 2 Mcg-0.125% 100 Ml) 100 ml EPIDUR ASDIRECTED [facility] Last Admin: 09/16/19 16:04 Dose: 100 ml Lactated Ringer's (Ringers, Lactated) 1,000 mls @ 100 mls/hr IV ASDIRECTED ALVAREZ Last Infusion: 09/16/19 16:50 Dose: 100 mls/hr Oxytocin/Lactated Ringer's (Pitocin In Lr 10 Units/1,000 Ml) 10 unit in 1,000 mls @ 500 mls/hr IV .CONTINUOUS AL[facility]AREZ Last Admin: 09/16/19 17:14 Dose: 500 mls/hr Ondansetron HCl (Zofran) 4 mg IVPUSH Q4H PRN PRN Reason: Nausea/Vomiting Ondansetron HCl (Zofran) 4 mg IVPUSH ONETIME PRN PRN Reason: Nausea/Vomiting Sodium Chloride (Saline Flush) 10 ml FLUSH ASDIRECTED PRN PRN Reason: Keep Vein Open
[2019-09-18 08:45] VITALS: BP 119/62; PULSE 93
[2019-09-18] MEDS: Prenatal Multivitamin with Calcium/Folic Acid/Iron Tab PO SCH (08:52)
[2019-09-18] MEDS: Ibuprofen 600 MG Tab PO PRN (08:52)
== END 2019-09-18 09:45 | disposition home or self-care (01) | DRG 560 ==
LOC: JD.OB 15:20 → OBSVTOIN 17:14 → JD.OB 17:14
PROVIDERS: ADMIT Obstetrics & Gynecology; ATTEND Obstetrics & Gynecology
PROC: 10E0XZZ Delivery of Products of Conception, External Approach (ICD-10-PCS; principal; 2019-09-16)
PROC: 3E0R3BZ Introduction of Anesthetic Agent into Spinal Canal, Percutaneous Approach (ICD-10-PCS; 2019-09-16)
DX: O99.214 Obesity complicating childbirth (principal); E66.9 Obesity, unspecified; Z3A.38 38 weeks gestation of pregnancy; Z37.0 Single live birth
CPT/HCPCS: 36415; 51701; 59025; 59409; 85025; 86592; A9270-GY; J2590; J3010; J3490; J7120

== ENCOUNTER 2020-12-27 11:14 | Emergency (ER) | payer MEDICAID ==
[2020-12-27 11:31] VITALS: BP 120/80; PULSE 120
[2020-12-27] MEDS ORDERED: Sodium Chloride 0.9% 10 ML Syringe FLUSH PRN (11:54)
[2020-12-27] MEDS ORDERED: diphenhydrAMINE 50 MG/ML SDV IVPUSH ONE (11:55)
[2020-12-27] MEDS ORDERED: Prochlorperazine 10 MG/2 ML SDV IVPUSH ONE (11:55)
[2020-12-27] MEDS ORDERED: Ketorolac 30 MG/ML SDV IVPUSH ONE (11:55)
[2020-12-27] MEDS ORDERED: Sodium Chloride 0.9% 1,000 ML IV SCH (12:00)
--- NOTE | 2020-12-27 12:00 | EDM.PDOC ---
ED HPI GENERAL MEDICAL PROBLEM - General Chief Complaint: Neuro Symptoms/Deficits Stated Complaint: RT SIDE FACIAL NUMBNESS Time Seen by Provider: 12/27/20 11:27 Source of Information: Reports: Patient History Limitations: Reports: No Limitations - History of Present Illness INITIAL COMMENTS - FREE TEXT/NARRATIVE: The patient presents with numbness to the right side of her face. Three months ago the patient thought she had COVID because she had a sore throat and some trouble swallowing. She saw Shaquille Samayoa in our clinic. Shaquille found she had an enlarged thyroid and was hypothyroid. She put her on levothyroxine and did an US. There is many nodules in both sides of her thyroid. She saw an sports clerk 3 days ago and he recommended she stop the levothyroxine and have the thyroid gland removed. She is still taking the levothyroxine because she says that the thyroid gland does not swell as much when she is taking it. She says it will flare up at times and cause trouble swallowing and breathing. Shaquille had her keep taking it because it was helping. She started having some numbness to both sides of her neck yesterday and that went up to both side of her face. It then stopped and went to just the right side of her face, right arm and right leg. She says her right arm is weak at times. She did have a flare up of her thyroid last night when this started. She took some ibuprofen and that helped. She also developed a headache. She has no fever, chills, cough, chest pain, shortness of breath, abdominal pain, nausea or vomiting. Onset: Gradual Duration: Day(s): (Yesterday) Location: Reports: Head Quality: Reports: Sharp Severity: Moderate Improves with: Reports: None Worsens with: Reports: None Associated Symptoms: Reports: Headaches, Nausea/Vomiting. Denies: Chest Pain, Cough, Fever/Chills, Shortness of Breath - Related Data Allergies Allergy/AdvReac Type Severity Reaction Status Date / Time No Known Allergies Allergy Verified 12/27/20 11:31 Home Meds: Home Meds Acetaminophen [Tylenol] 650 mg PO Q4H PRN tablet 09/18/19 [Rx] Ibuprofen [Motrin] 600 mg PO Q4H PRN tablet 09/18/19 [Rx] Levothyroxine 25 mcg PO DAILY 12/27/20 [History] Past Medical History HEENT History: Reports: Impaired Vision Cardiovascular History: Reports: None Respiratory History: Reports: Asthma Gastrointestinal History: Reports: None Genitourinary History: Reports: None BLOOD BANK TECHNICIAN History: Reports: , Other (See Below) Other BLOOD BANK TECHNICIAN History: DNC Musculoskeletal History: Reports: None Neurological History: Reports: None Psychiatric History: Reports: Depression Endocrine/Metabolic History: Reports: Hypothyroidism, Obesity/BMI 30+ Other Endocrine/Metabolic History: enlarged thyroid Hematologic History: Reports: None Immunologic History: Reports: None Oncologic (Cancer) History: Reports: None Dermatologic History: Reports: None - Infectious Disease History Infectious Disease History: Reports: Chicken Pox - Past Surgical History Head Surgeries/Procedures: Reports: None HEENT Surgical History: Reports: Adenoidectomy, Tonsillectomy Cardiovascular Surgical History: Reports: None Respiratory Surgical History: Reports: None GI Surgical History: Reports: Appendectomy Female Surgical History: Reports: D&C, Oophorectomy Endocrine Surgical History: Reports: None Neurological Surgical History: Reports: None Musculoskeletal Surgical History: Reports: None Oncologic Surgical History: Reports: None Dermatological Surgical History: Reports: None Social & Family History - Family History Family Medical History: No Pertinent Family History - Tobacco Use Tobacco Use Status *Q: Never Tobacco User Second Hand Smoke Exposure: No - Caffeine Use Caffeine Use: Reports: Coffee, Energy Drinks, Soda, Tea - Recreational Drug Use Recreational Drug Use: No - Living Situation & Occupation Living situation: Reports: , with Spouse, with Family (3 kids) Occupation: Unemployed ED ROS GENERAL - Review of Systems Review Of Systems: See Below Constitutional: Reports: No Symptoms HEENT: Reports: No Symptoms Respiratory: Reports: No Symptoms Cardiovascular: Reports: No Symptoms Endocrine: Reports: No Symptoms GI/Abdominal: Reports: No Symptoms : Reports: No Symptoms Musculoskeletal: Reports: No Symptoms Skin: Reports: No Symptoms Neurological: Reports: Headache, Numbness (right face, arm and leg), Tingling (right leg) ED EXAM, NEURO - Physical Exam Exam: See Below Exam Limited By: No Limitations General Appearance: Alert, No Apparent Distress Ears: Normal External Exam Nose: Normal Inspection Head Exam: Atraumatic, Normocephalic Neck: Normal Inspection Respiratory/Chest: No Respiratory Distress, Lungs Clear, Normal Breath Sounds Cardiovascular: Regular Rate, Rhythm, No Edema, No Murmur GI/Abdominal: Soft, Non-Tender, No Organomegaly, No Mass Neurological: Alert, Oriented x 3, Other (She can feel a difference with light touch to her right face, arm and leg. She has no weakness on exam.) Course - Vital Signs Last Recorded V/S: Last Vital Signs Temp 98.1 F 12/27/20 11:29 Pulse 120 H 12/27/20 11:29 Resp 15 12/27/20 11:29 BP 120/80 12/27/20 11:29 Pulse Ox 100 12/27/20 11:29 - Orders/Labs/Meds Orders: Active Orders 24 hr Category Date Time Status Cardiac Monitoring [RC] . DIRECTED Care 12/27/20 11:54 Active EKG Documentation Completion [RC] ASDIRECTED Care 12/27/20 12:11 Active Peripheral IV Care [RC] . DIRECTED Care 12/27/20 11:55 Active Soft Tissue Neck wo Cont [CT] Stat Exams 12/27/20 12:28 Taken Sodium Chloride 0.9% [Normal Saline] 1,000 ml Med 12/27/20 12:00 Active IV ASDIRECTED Sodium Chloride 0.9% [Saline Flush] Med 12/27/20 11:54 Active 10 ml FLUSH ASDIRECTED PRN Peripheral IV Insertion Adult [OM.PC] Stat Oth 12/27/20 11:54 Ordered EKG 12 Lead [EK] Stat Ther 12/27/20 12:11 Ordered Medication Orders Sodium Chloride (Normal Saline) 1,000 mls @ 125 mls/hr IV ASDIRECTED ALVAREZ Last Admin: 12/27/20 12:06 Dose: 125 mls/hr Documented by: ELVIS Sodium Chloride (Sodium Chloride 0.9% 10 Ml Syringe) 10 ml FLUSH ASDIRECTED PRN PRN Reason: Keep Vein Open Last Admin: 12/27/20 12:06 Dose: 10 ml Documented by: ELVIS Labs: Laboratory Tests 12/27/20 12/27/20 Range/Units 11:54 12:00 WBC 4.59 (3.98-10.04) K/mm3 RBC 4.54 (3.98-5.22) M/mm3 Hgb 12.9 (11.2-15.7) gm/dl Hct 39.7 (34.1-44.9) % MCV 87.4 (79.4-94.8) fl MCH 28.4 (25.6-32.2) pg MCHC 32.5 (32.2-35.5) g/dl RDW Std Deviation 40.9 (36.4-46.3) fL Plt Count 230 (182-369) K/mm3 MPV 9.7 (9.4-12.3) fl Neut % (Auto) 59.1 (34.0-71.1) % Lymph % (Auto) 31.8 (19.3-51.7) % [place] % (Auto) 7.2 (4.7-12.5) % Eos % (Auto) 1.3 (0.7-5.8) Baso % (Auto) 0.4 (0.1-1.2) % Neut # (Auto) 2.71 (1.56-6.13) K/mm3 Lymph # (Auto) 1.46 (1.18-3.74) K/mm3 [place] # (Auto) 0.33 (0.24-0.36) K/mm3 Eos # (Auto) 0.06 (0.04-0.36) K/mm3 Baso # (Auto) 0.02 (0.01-0.08) K/mm3 Sodium 139 (136-145) mEq/L Potassium 3.8 (3.5-5.1) mEq/L Chloride 102 (98-107) mEq/L Carbon Dioxide 26 (21-32) mEq/L Anion Gap 14.8 (5-15) BUN 11 (7-18) mg/dL Creatinine 0.8 (0.55-1.02) mg/dL Est Cr Clr Drug Dosing 115.97 mL/min Estimated GFR (MDRD) > 60 (>60) mL/min BUN/Creatinine Ratio 13.8 L (14-18) Glucose 113 H (70-99) mg/dL Calcium 8.7 (8.5-10.1) mg/dL Magnesium 2.1 (1.8-2.4) mg/dL Total Bilirubin 0.9 (0.2-1.0) mg/dL AST 19 (15-37) U/L ALT 44 (14-59) U/L Alkaline Phosphatase 64 (46-116) U/L C-Reactive Protein <0.2 (<1.0) mg/dL Total Protein 7.6 (6.4-8.2) g/dl Albumin 4.1 (3.4-5.0) g/dl Globulin 3.5 gm/dL Albumin/Globulin Ratio 1.2 (1-2) Free T4 0.89 (0.76-1.46) ng/dL TSH 3rd Generation 1.402 (0.358-3.74) uIU/mL Meds: Medications Generic Name Dose Route Start Last Admin Trade Name Freq PRN Reason Stop Dose Admin Sodium Chloride 1,000 mls @ 125 mls/hr 12/27/20 12:00 12/27/20 12:06 Normal Saline IV 125 mls/hr ASDIRECTED ALVAREZ Administration Sodium Chloride 10 ml 12/27/20 11:54 12/27/20 12:06 Sodium Chloride 0.9% 10 Ml Syringe FLUSH 10 ml ASDIRECTED PRN Administration Keep Vein Open Discontinued Medications Generic Name Dose Route Start Last Admin Trade Name Freq PRN Reason Stop Dose Admin Diphenhydramine HCl 50 mg 12/27/20 11:55 12/27/20 12:05 Diphenhydramine 50 Mg/Ml Sdv IVPUSH 12/27/20 11:56 50 mg ONETIME ONE Administration Ketorolac Tromethamine 30 mg 12/27/20 11:55 12/27/20 12:05 Ketorolac 30 Mg/Ml Sdv IVPUSH 12/27/20 11:56 30 mg ONETIME ONE Administration Prochlorperazine Edisylate 10 mg 12/27/20 11:55 12/27/20 12:05 Prochlorperazine 10 Mg/2 Ml Sdv IVPUSH 12/27/20 11:56 10 mg ONETIME ONE Administration - Re-Assessments/Exams Free Text/Narrative Re-Assessment/Exam: 12/27/20 12:11 I have ordered an IV saline lock, toradol 30mg IV, compazine 10mg IV, benadryl 50mg IV, CT of neck, EKG and labs. 12/27/20 14:08 Her labs look good. Her CT shows the thyroid gland is severely enlarged bilaterally and generally edematous in appearance. No dominant mass is seen. No calcification identified. Consider acute and subacute thyroiditis. Prominent lingular tonsillar tissue, clinical assessment recommended. She feels better. I feel the numbness is related to the headache. I will discharge her home with follow up with the surgeon Dr Ramos tomorrow. Departure - Departure Time of Disposition: 14:15 Disposition: Home, Self-Care 01 Condition: Good Clinical Impression: Thyroiditis, Numbness, Enlarged thyroid Headache Qualifiers: Headache type: other headache syndrome Qualified Code(s): G44.89 - Other headache syndrome - Discharge Information *PRESCRIPTION DRUG MONITORING PROGRAM REVIEWED*: Not Applicable *COPY OF PRESCRIPTION DRUG MONITORING REPORT IN PATIENT JIN: Not Applicable Referrals: Pierce Samayoa NP [Primary Care Provider] - Forms: ED Department Discharge Additional Instructions: Keep taking your medications. Follow up with your surgeon tomorrow. Please return if you are worse. Sepsis Event Note (ED) - Evaluation Sepsis Screening Result: No Definite Risk - Focused Exam Vital Signs: Vital Signs Temp Pulse Resp BP Pulse Ox 12/27/20 11:29 98.1 F 120 H 15 120/80 100 - My Orders Last 24 Hours: My Active Orders 12/27/20 11:54 Cardiac Monitoring [RC] . DIRECTED Sodium Chloride 0.9% [Saline Flush] 10 ml FLUSH ASDIRECTED PRN Peripheral IV Insertion Adult [OM.PC] Stat 12/27/20 11:55 Peripheral IV Care [RC] . DIRECTED 12/27/20 12:00 Sodium Chloride 0.9% [Normal Saline] 1,000 ml IV ASDIRECTED 12/27/20 12:11 EKG Documentation Completion [RC] ASDIRECTED EKG 12 Lead [EK] Stat 12/27/20 12:28 Soft Tissue Neck wo Cont [CT] Stat - Assessment/Plan Last 24 Hours: My Active Orders 12/27/20 11:54 Cardiac Monitoring [RC] . DIRECTED Sodium Chloride 0.9% [Saline Flush] 10 ml FLUSH ASDIRECTED PRN Peripheral IV Insertion Adult [OM.PC] Stat 12/27/20 11:55 Peripheral IV Care [RC] . DIRECTED 12/27/20 12:00 Sodium Chloride 0.9% [Normal Saline] 1,000 ml IV ASDIRECTED 12/27/20 12:11 EKG Documentation Completion [RC] ASDIRECTED EKG 12 Lead [EK] Stat 12/27/20 12:28 Soft Tissue Neck wo Cont [CT] Stat
--- NOTE | 2020-12-28 07:32 | CT ---
Soft tissue neck Technique: Multiple axial sections through the neck were obtained. Intravenous contrast was not utilized. Reconstructed coronal and sagittal images were obtained. Comparison: No prior neck imaging is available. Findings: Soft tissue density is noted around the thyroid gland. Thyroid gland is poorly visualized and findings presumably represent diffuse edema within and around the thyroid structure. Small scattered lymph nodes are seen within the neck which are believed to be within normal limits. Prevertebral soft tissues are normal. Slightly prominent lingular tonsils are noted which is likely incidental since it is symmetric. No other soft tissue abnormality is otherwise seen. Bone window settings were reviewed which show scoliosis within the spine. No acute osseous abnormality is appreciated. Impression: 1. Soft tissue swelling which appears to be within the thyroid gland causing prominent enlargement of the thyroid gland. Differential includes acute and nonacute thyroiditis. 2. Slightly prominent lingular tonsils which is likely incidental since these are symmetric. Please correlate with clinical findings. 3. Slight scoliosis is seen. Diagnostic code #3 I agree with preliminary report from [facility], finalized on 12/27/20, 2:38 PM CDT, code 1
== END 2020-12-27 14:25 | disposition home or self-care (01) ==
LOC: JD.ED 11:14
DX: G44.89 Other headache syndrome (principal); E06.9 Thyroiditis, unspecified; R20.0 Anesthesia of skin; E04.9 Nontoxic goiter, unspecified; E03.9 Hypothyroidism, unspecified; J45.909 Unspecified asthma, uncomplicated; E66.9 Obesity, unspecified; Z68.27 Body mass index [BMI] 27.0-27.9, adult; Z79.899 Other long term (current) drug therapy
CPT/HCPCS: 36415; 70490; 80053; 83735; 84439; 84443; 85025; 86140; 93005; 96374; 96375; 99284; J0780; J1200; J1885; J7030

== ENCOUNTER 2021-01-19 16:51 | Emergency (ER) | payer MEDICAID ==
[2021-01-19 17:04] VITALS: BP 114/78; PULSE 100
--- NOTE | 2021-01-19 17:50 | EDM.PDOC ---
ED HPI GENERAL MEDICAL PROBLEM - General Chief Complaint: Chest Pain Stated Complaint: CHEST PAIN Time Seen by Provider: 01/19/21 17:16 Source of Information: Reports: Patient, RN Notes Reviewed - History of Present Illness INITIAL COMMENTS - FREE TEXT/NARRATIVE: 30 yr old female has been having chest pain on and off for the past 2 days. Mid chest without radiation. Has not been other hernandez ill. Under a lot of stress. Has a growth R thyroid, scheduled for surgery in about 2 wks. Chest Pain Score (Numeric/FACES): 5 - Related Data Allergies Allergy/AdvReac Type Severity Reaction Status Date / Time No Known Allergies Allergy Verified 12/27/20 11:31 Home Meds: Home Meds Acetaminophen [Tylenol] 650 mg PO Q4H PRN tablet 09/18/19 [Rx] Ibuprofen [Motrin] 600 mg PO Q4H PRN tablet 09/18/19 [Rx] Levothyroxine 25 mcg PO DAILY 12/27/20 [History] LORazepam [Ativan] 0.5 mg PO BEDTIME PRN #6 tablet 01/19/21 [Rx] Pantoprazole Sodium [Protonix] 40 mg PO ASDIRECTED PRN 01/19/21 [History] Past Medical History HEENT History: Reports: Impaired Vision Cardiovascular History: Reports: None Respiratory History: Reports: Asthma Gastrointestinal History: Reports: GERD Genitourinary History: Reports: UTI, Recurrent 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: Reports: Dysfunctional Uterine Bleeding, , Other (See Below) Other 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: D and C Musculoskeletal History: Reports: None Neurological History: Reports: None Psychiatric History: Reports: Anxiety, Depression Endocrine/Metabolic History: Reports: Hypothyroidism, Obesity/BMI 30+ Other Endocrine/Metabolic History: enlarged thyroid Hematologic History: Reports: Anemia Immunologic History: Reports: None Oncologic (Cancer) History: Reports: None Dermatologic History: Reports: None - Infectious Disease History Infectious Disease History: Reports: Chicken Pox, Influenza - Past Surgical History HEENT Surgical History: Reports: Adenoidectomy, Tonsillectomy GI Surgical History: Reports: Appendectomy Female Surgical History: Reports: D&C, Oophorectomy, Other (See Below) Other Female Surgeries/Procedures: L) ovary removed. Social & Family History - Family History Family Medical History: No Pertinent Family History - Tobacco Use Tobacco Use Status *Q: Never Tobacco User Second Hand Smoke Exposure: No - Caffeine Use Caffeine Use: Reports: Coffee, Soda - Recreational Drug Use Recreational Drug Use: No - Living Situation & Occupation Living situation: Reports: , with Spouse, with Family (3 kids) Occupation: Unemployed ED ROS GENERAL - Review of Systems Review Of Systems: See Below Constitutional: Denies: Fever, Chills, Diaphoresis HEENT: Reports: No Symptoms Respiratory: Denies: Shortness of Breath Cardiovascular: Reports: Chest Pain, Palpitations (occasional) GI/Abdominal: Denies: Abdominal Pain, Nausea, Vomiting Musculoskeletal: Denies: Shoulder Pain, Arm Pain, Back Pain Skin: Reports: No Symptoms Neurological: Reports: No Symptoms ED EXAM, GENERAL - Physical Exam Exam: See Below General Appearance: Alert, No Apparent Distress Nose: Other (Area of moderate swelling R thyroid area of neck) Head: Atraumatic Neck: Supple Respiratory/Chest: No Respiratory Distress, Lungs Clear, Normal Breath Sounds, Other (Mild tenderness R sternal border) Cardiovascular: Regular Rate, Rhythm GI/Abdominal: Soft, Non-Tender Back Exam: No: CVA Tenderness (L), CVA Tenderness (R) Extremities: Normal Inspection. No: Pedal Edema, Leg Pain Skin Exam: Warm, Dry, Normal Color #1 Interpretation EKG Date: 01/19/21 Rhythm: NSR [place]: Normal P-Wave: Present QRS: Other (low voltage III and AVF) ST-T: Other (T wave inversion V2 and V3) Course - Vital Signs Last Recorded V/S: Last Vital Signs Temp 96.7 F L 01/19/21 16:55 Pulse 100 01/19/21 16:55 Resp 14 01/19/21 16:55 BP 114/78 01/19/21 16:55 Pulse Ox 100 01/19/21 16:55 Departure - Departure Time of Disposition: 17:43 Disposition: Home, Self-Care 01 Condition: Fair Clinical Impression: Atypical chest pain, Chest wall pain, Anxiety Prescriptions: LORazepam [Ativan] 0.5 mg PO BEDTIME PRN #6 tablet PRN Reason: Anxiety Instructions: Nonspecific Chest Pain, Adult, [id number] Referrals: Pierce Samayoa JUNIOR SYSTEMS ADMINISTRATOR [Primary Care Provider] - Forms: ED Department Discharge Additional Instructions: You may take tylenol or ibuprofen for discomfort if needed. You may also alternate ice and heat to area of discomfort as needed. Ativan 0.5 mg if needed for severe anxiety, stress or difficulty sleeping. Prescription has been sent to [facility]. Follow up clinic as needed. Return to ED as needed if symptoms worsening in any way. Sepsis Event Note (ED) - Evaluation Sepsis Screening Result: No Definite Risk
== END 2021-01-19 17:58 | disposition home or self-care (01) ==
LOC: JD.ED 16:51
DX: R07.89 Other chest pain (principal); F41.9 Anxiety disorder, unspecified; K21.9 Gastro-esophageal reflux disease without esophagitis; E03.9 Hypothyroidism, unspecified; E66.9 Obesity, unspecified; Z68.28 Body mass index [BMI] 28.0-28.9, adult; Z79.899 Other long term (current) drug therapy
CPT/HCPCS: 93005; 99284-25

== ENCOUNTER 2021-12-09 05:09 | Inpatient (IN) | payer MEDICAID ==
[2021-12-09] MEDS: Lactated Ringers 1,000 ML IV SCH ×2 (05:30→06:20)
[2021-12-09] MEDS ORDERED: diphenhydrAMINE 50 MG/ML SDV IVPUSH PRN (05:36)
[2021-12-09] MEDS ORDERED: fentaNYL 100 MCG/2 ML SDV EPIDUR PRN (05:36)
[2021-12-09] MEDS ORDERED: Bupivacaine/fentaNYL/NS 100 ML Bag EPIDUR PRN (05:36)
[2021-12-09] MEDS ORDERED: ePHEDrine 50 MG/ML SDV IVPUSH PRN (05:36)
[2021-12-09] MEDS ORDERED: Sodium Chloride 0.9% 10 ML Syringe FLUSH PRN (05:45)
[2021-12-09] MEDS ORDERED: Oxytocin/Lactated Ringers 10 UNIT/1,000 ML BAG IV SCH ×2 (05:45→07:15)
[2021-12-09] MEDS ORDERED: Ondansetron 4 MG/2 ML SDV IVPUSH PRN (05:45)
[2021-12-09] MEDS ORDERED: Lidocaine 1% 50 ML MDV INJECT ONE (05:45)
[2021-12-09] MEDS ORDERED: Nalbuphine HCl 10 MG/ 1ML Amp IVPUSH PRN (05:45)
[2021-12-09] MEDS ORDERED: Sodium Chloride 0.9% 10 ML Syringe FLUSH SCH (09:00)
[2021-12-09] MEDS ORDERED: Misoprostol 200 MCG Tab PO PRN (10:14)
[2021-12-09] MEDS ORDERED: Methylergonovine 0.2 MG/1 ML Amp IM PRN (10:14)
[2021-12-09] MEDS ORDERED: Benzocaine/Menthol 20%-0.5% Spray 78 GM Cannister TOP PRN (11:10)
[2021-12-09] MEDS ORDERED: Docusate Sodium 100 MG Cap PO PRN (11:10)
[2021-12-09] MEDS ORDERED: Witch Hazel Medicated Pads 40/Jar TOP PRN (11:10)
[2021-12-09] MEDS ORDERED: Acetaminophen 325 MG Tab PO PRN (11:10)
[2021-12-09] MEDS: Ibuprofen 600 MG Tab PO PRN ×2 (14:50→20:55)
[2021-12-10] MEDS ORDERED: Levothyroxine 125 MCG Tab PO SCH (06:00)
[2021-12-10] MEDS ORDERED: Prenatal Multivitamin with Calcium/Folic Acid/Iron Tab PO SCH (09:00)
[2021-12-10] MEDS: Ibuprofen 600 MG Tab PO PRN (09:06)
[2021-12-10 10:46] VITALS: BP 128/60; PULSE 69
== END 2021-12-10 10:35 | disposition home or self-care (01) | DRG 807 ==
LOC: JD.OBCHECK 05:09 → JD.OB 05:13 → JD.OBCHECK 05:50 → OBSVTOIN 08:22 → JD.OB 08:23
PROVIDERS: ADMIT Obstetrics & Gynecology; ATTEND Obstetrics & Gynecology
PROC: 10E0XZZ Delivery of Products of Conception, External Approach (ICD-10-PCS; principal; 2021-12-09)
PROC: 3E0R3BZ Introduction of Anesthetic Agent into Spinal Canal, Percutaneous Approach (ICD-10-PCS; 2021-12-09)
PROC: 10907ZC Drainage of Amniotic Fluid, Therapeutic from Products of Conception, Via Natural or Artificial Opening (ICD-10-PCS; 2021-12-09)
DX: O77.0 Labor and delivery complicated by meconium in amniotic fluid (principal); Z37.0 Single live birth; Z3A.39 39 weeks gestation of pregnancy; O99.284 Endocrine, nutritional and metabolic diseases complicating childbirth; E03.9 Hypothyroidism, unspecified
CPT/HCPCS: 01967; 36415; 51701; 59025; 59409; 85025; 86592; 86850; 86900; 86901; A9270-GY; J2210; J2590; J3010; J3490; J7120

== ENCOUNTER 2022-01-13 17:38 | Emergency (ER) | payer MEDICAID ==
[2022-01-13 18:33] VITALS: BP 116/69; PULSE 75
[2022-01-13] MEDS ORDERED: Sodium Chloride 0.9% 10 ML Syringe FLUSH PRN (18:49)
[2022-01-13 19:38] LABS: ESTIMATED GFR 102 mL/min (>60)
[2022-01-13] MEDS ORDERED: cefTRIAXone 1 GM in Sodium Chloride 0.9% 100 ML IV ONE (20:14)
== END 2022-01-13 21:14 | disposition home or self-care (01) ==
LOC: JD.ED 17:38
DX: K04.7 Periapical abscess without sinus (principal); E03.9 Hypothyroidism, unspecified; E66.9 Obesity, unspecified; Z68.30 Body mass index [BMI] 30.0-30.9, adult; Z79.899 Other long term (current) drug therapy
CPT/HCPCS: 36415; 70486; 80053; 85025; 86140; 96365; 99284; J0696; J3490

== ENCOUNTER 2023-07-06 02:40 | Inpatient (IN) | payer MEDICAID ==
[2023-07-06] MEDS ORDERED: Nalbuphine HCl 10 MG/ 1ML Amp IVPUSH PRN (02:46)
[2023-07-06] MEDS ORDERED: Acetaminophen 325 MG Tab PO PRN (02:46)
[2023-07-06] MEDS ORDERED: Lidocaine 1% 50 ML MDV INJECT PRN (02:46)
[2023-07-06] MEDS ORDERED: Calcium Carbonate 500 MG Tab.Chew PO PRN (02:46)
[2023-07-06] MEDS ORDERED: Ondansetron 4 MG/2 ML SDV IVPUSH PRN (02:46)
[2023-07-06] MEDS ORDERED: Ampicillin 2 GM in Sodium Chloride 0.9% 100 ML IV ONE (02:46)
[2023-07-06] MEDS ORDERED: Oxytocin/Lactated Ringers 30 UNIT/500 ML BAG IV SCH ×2 (03:00→07:45)
[2023-07-06] MEDS: Lactated Ringers 1,000 ML IV SCH ×2 (03:07→03:57)
[2023-07-06 03:12] LABS: BASOPHILS PERCENT AUTO 0.5 % (0.0-1.0); EOSINOPHILS ABSOLUTE AUTO 0.1 K/mm3 (0.0-0.4); EOSINOPHILS PERCENT AUTO 0.6 % (0.0-6.0); HEMATOCRIT 32.9 % (37.0-47.0); IMMATURE GRAN ABSOLUTE AUTO 0.08 K/mm3 (0.00-0.05); IMMATURE GRAN PERCENT AUTO 0.9 % (0.0-0.4); LYMPHOCYTES ABSOLUTE AUTO 1.7 K/mm3 (1.0-4.8); LYMPHOCYTES PERCENT AUTO 19.7 % (24.0-44.0); MEAN CORPUSCULAR HEMOGLOBIN 31.3 pg (28.0-32.0); MEAN CORPUSCULAR HGB CONC 33.4 g/dl (32.0-36.0); MEAN CORPUSCULAR VOLUME 93.7 fl (83.0-99.0); MEAN PLATELET VOLUME 9.8 fl (9.4-12.3); MONOCYTES ABSOLUTE AUTO 0.5 K/mm3 (0.0-0.8); MONOCYTES PERCENT AUTO 6.3 % (0.0-8.0); NEUTROPHILS ABSOLUTE AUTO 6.1 K/mm3 (1.8-7.7); PLATELET COUNT,PLT 168 K/mm3 (150-400); RED BLOOD CELL COUNT 3.51 M/mm3 (4.10-5.30); WHITE BLOOD CELL COUNT,WBC 8.44 K/mm3 (3.9-11.3)
[2023-07-06] MEDS ORDERED: diphenhydrAMINE 50 MG/ML SDV IVPUSH PRN (03:52)
[2023-07-06] MEDS ORDERED: fentaNYL 100 MCG/2 ML SDV EPIDUR PRN (03:52)
[2023-07-06] MEDS ORDERED: ePHEDrine 50 MG/ML SDV IVPUSH PRN (03:52)
[2023-07-06] MEDS ORDERED: Bupivacaine/fentaNYL/NS 100 ML Bag EPIDUR PRN (03:52)
[2023-07-06] MEDS ORDERED: Lidocaine 1% 10 ML MDV ONE (04:00)
[2023-07-06] MEDS ORDERED: Ampicillin 1 GM in Sodium Chloride 0.9% 100 ML IV SCH (07:00)
[2023-07-06] MEDS ORDERED: Witch Hazel Medicated Pads 40/Jar TOP PRN (10:07)
[2023-07-06] MEDS ORDERED: Benzocaine/Menthol 20%-0.5% Spray 78 GM Cannister TOP PRN (10:07)
[2023-07-06] MEDS ORDERED: Misoprostol 200 MCG Tab PO ONE (10:09)
[2023-07-06] MEDS ORDERED: Methylergonovine 0.2 MG/1 ML Amp IM ONE (10:10)
[2023-07-06] MEDS: Ibuprofen 600 MG Tab PO PRN ×2 (14:25→21:44)
[2023-07-07] MEDS ORDERED: Levothyroxine 125 MCG Tab PO SCH (06:00)
[2023-07-07] MEDS: Ibuprofen 600 MG Tab PO PRN (10:29)
[2023-07-07 13:56] VITALS: BP 117/72; PULSE 83
== END 2023-07-07 12:30 | disposition home or self-care (01) | DRG 807 ==
LOC: JD.OBCHECK 02:40 → JD.OB 02:46 → JD.OBCHECK 02:47 → JD.OB 02:48 → OBSVTOIN 09:15 → JD.OB 09:20
PROVIDERS: ADMIT Family Medicine; ATTEND Family Medicine
PROC: 10E0XZZ Delivery of Products of Conception, External Approach (ICD-10-PCS; principal; 2023-07-06)
PROC: 3E033VJ Introduction of Other Hormone into Peripheral Vein, Percutaneous Approach (ICD-10-PCS; 2023-07-06)
PROC: 3E0R3BZ Introduction of Anesthetic Agent into Spinal Canal, Percutaneous Approach (ICD-10-PCS; 2023-07-06)
PROC: 00HU33Z Insertion of Infusion Device into Spinal Canal, Percutaneous Approach (ICD-10-PCS; 2023-07-06)
DX: O42.02 Full-term premature rupture of membranes, onset of labor within 24 hours of rupture (principal); Z37.0 Single live birth; O99.02 Anemia complicating childbirth; O99.284 Endocrine, nutritional and metabolic diseases complicating childbirth; E03.9 Hypothyroidism, unspecified; O99.824 Streptococcus B carrier state complicating childbirth; Z79.890 Hormone replacement therapy; O99.214 Obesity complicating childbirth; Z3A.38 38 weeks gestation of pregnancy; D64.9 Anemia, unspecified
CPT/HCPCS: 36415; 51702; 59025; 59409; 85025; 86592; 86850; 86900; 86901; A9270-GY; J0290; J2210; J3010; J3490; J7120; J7999

== ENCOUNTER 2024-10-02 18:33 | Emergency (ER) | payer MEDICAID ==
[2024-10-02] MEDS: Ondansetron 4 MG/2 ML SDV IVPUSH ONE (19:19)
[2024-10-02] MEDS: Acetaminophen 325 MG Tab PO ONE (19:19)
[2024-10-02] MEDS: Sodium Chloride 0.9% 1,000 ML IV ONE (20:32)
[2024-10-02 20:36] LABS: BASOPHILS PERCENT AUTO 0.4 % (0.0-1.0); EOSINOPHILS PERCENT AUTO 0.8 % (0.0-6.0); HEMATOCRIT 37.1 % (37.0-47.0); HEMOGLOBIN 11.9 gm/dl (12.0-16.0); IMMATURE GRAN ABSOLUTE AUTO 0.01 K/mm3 (0.00-0.05); IMMATURE GRAN PERCENT AUTO 0.2 % (0.0-0.4); LYMPHOCYTES ABSOLUTE AUTO 1.4 K/mm3 (1.0-4.8); LYMPHOCYTES PERCENT AUTO 30.4 % (24.0-44.0); MEAN CORPUSCULAR HEMOGLOBIN 27.5 pg (28.0-32.0); MEAN CORPUSCULAR HGB CONC 32.1 g/dl (32.0-36.0); MEAN CORPUSCULAR VOLUME 85.9 fl (83.0-99.0); MEAN PLATELET VOLUME 9.5 fl (9.4-12.3); MONOCYTES ABSOLUTE AUTO 0.4 K/mm3 (0.0-0.8); MONOCYTES PERCENT AUTO 8.7 % (0.0-8.0); NEUTROPHILS ABSOLUTE AUTO 2.8 K/mm3 (1.8-7.7); NEUTROPHILS PERCENT AUTO 59.5 % (41.0-71.0); PLATELET COUNT,PLT 205 K/mm3 (150-400); RED BLOOD CELL COUNT 4.32 M/mm3 (4.10-5.30); WHITE BLOOD CELL COUNT,WBC 4.73 K/mm3 (3.9-11.3)
[2024-10-02 20:51] LABS: ALBUMIN 3.6 g/dl (3.4-5.0); ANION GAP 12.2 (5-15); BILIRUBIN TOTAL 0.2 mg/dL (0.2-1.0); POTASSIUM,K 3.2 mEq/L (3.5-5.1); PROTEIN TOTAL,TP 7.2 g/dl (6.4-8.2)
[2024-10-02 21:07] LABS: BUN/CREATININE RATIO 21.4 (14-18); CALCIUM 8.1 mg/dL (8.5-10.1); CREATININE 0.7 mg/dL (0.55-1.02); EST CRCL DRUG DOSING (CG) 107.01 mL/min; MAGNESIUM 1.8 mg/dL (1.8-2.4)
[2024-10-02 22:24] LABS: AMPHETAMINES SCREEN, URINE PRESUMPTIVE POSITIVE (CUTOFF=500); BARBITURATE SCREEN,URINE NEGATIVE (CUTOFF=200); BENZODIAZEPINES SCREEN,URINE NEGATIVE (CUTOFF=150); BUPRENORPHINE SCREEN,URINE NEGATIVE (CUTOFF=10); METHADONE SCREEN, URINE NEGATIVE (CUTOFF=200); METHAMPHETAMINES SCREEN, URINE PRESUMPTIVE POSITIVE (CUTOFF=500); OXYCODONE SCREEN,URINE NEGATIVE (CUT0FF=100); THC SCREEN,URINE 20 NG/ML NEGATIVE (CUTOFF=50)
[2024-10-02 23:48] VITALS: BP 125/85; PULSE 80
== END 2024-10-02 23:49 | disposition home or self-care (01) ==
LOC: JD.ED 18:33
DX: K52.9 Noninfective gastroenteritis and colitis, unspecified (principal); J45.909 Unspecified asthma, uncomplicated; E66.9 Obesity, unspecified; E03.9 Hypothyroidism, unspecified; Z79.890 Hormone replacement therapy; Z79.899 Other long term (current) drug therapy; Z90.49 Acquired absence of other specified parts of digestive tract; Z68.26 Body mass index [BMI] 26.0-26.9, adult
CPT/HCPCS: 36415; 74176; 80053; 80306; 80325; 80359; 81025; 82272; 82550; 83605; 83690; 83735; 85025; 87045; 87046; 87798; 87899; 96360; 99284; J7030; 99283; G0480